=== PATIENT | male | born 1955 | race African-American/Black ===

== ENCOUNTER → 2017-05-21 | Day surgery (SDC) | payer MEDICARE, OTHER ==
[~2017-05-21] MED LIST: ACETAMINOPHEN500 MG PO; ALBUTEROL2.5 MG/3 M IH; AMBIEN5 MG PO; AMIODARONE HCL200 MG PO; ANDROGEL2.5 GM TP; ARANESP40 MCG/0.4 SQ; ARTIFICIAL TEA1 EAC1 OU; ARTIFICIAL TEAR15 ML OP; ASPIR 8181 MG PO; BELLADONNA/OPIUM 60 MG SUPP PR ONE; BENADRYL25 M1 PO; BIOFREEZE TOP; BISACODYL5 MG RC; CEFTRIAXONE SOD 1 GM VIAL ONE; CLONIDINE HCL0.1 MG PO; CORDARONE PO; COUMADIN PO; CYCLOBENZAPRINE10 MG PO; CYMBALTA30 MG PO; DEXAMETHASONE SOD PHOS INJ 4 MG/ML VIAL ONE; DULCOLAX10 MG PR; DULCOLAX10 MG RC; DULCOLAX5 MG PO; ENULOSE10 GM/15 M PO; FENTANYL CITRATE/PF 100MCG/2 ML INJ ONE; FINASTERIDE5 MG PO; FLAVOXATE HCL100 MG PO; FLOMAX0.4 MG PO; FLUTICASONE; FOLIC ACID1 MG PO; GABAPENTIN100 MG PO; GABAPENTIN600 MG PO; IBUPROFEN200 MG PO; IOPAMIDOL 610MG/1ML 300 MG/ML VIAL IV ONE; LACTULOSE20 GM/30 M PO; LIDOCAINE HCL 2% LOCAL INJ 5 ML SDV VIAL INJ ONE; LIDOCAINE PATCH 5% TD; LIDOCAINE1 EA TP; LOPERAMIDE2 MG PO; LORATADINE10 MG PO; LORAZEPAM0.5 MG PO; MEROPENEM500 MG IV; MIDAZOLAM HCL 2 MG/2 ML VIAL ONE; MIDODRINE HCL10 MG PO; MIDODRINE HCL5 MG PO; MIRALAX17 GM PO; MULTIVITAMINS1 EAC7 PO; NEPHRO-VITE TABL1 EA PO; NEPRO-VITE PO; NEURONTIN600 MG PO; NIACIN1000 MG PO; NORCO 10-325 T1 EACH PO; NORCO 7.5-3251 EACH PO; NORVASC5 MG PO; OMEGA 3 1,0001 EACH PO; ONDANSETRON HCL INJ 2 MG/ML VIAL ONE; OXYBUTYNIN CHLO15 MG PO; PAIN RELIEF500 M1 PO; PEPCID20 MG PO; PHENAZOPYRIDIN100 MG PO; PHENYLEPHRINE HCL 1% 10 MG/ML VIAL ONE; POLYETHYLENE GL17 GM PO; PROMETHAZINE HC25 M1 PO; PROPOFOL IV EMULSION 10 MG/ML 20 ML VIAL ONE; PROSCAR5 MG PO; PYRIDOXINE HCL100 MG PO; QUESTRAN PACKET4 GM PO; RENVELA0.8 GM PO; RENVELA800 MG PO; REQUIP0.25 MG PO; REQUIP0.5 MG PO; REQUIP1 MG PO; RIBOFLAVIN100 MG PO; ROBITUSSIN COU118 ML PO; SENNA-S TABLET1 EA PO; SENSIPAR60 MG PO; SENSIPAR90 MG PO; SEROQUEL25 MG PO; SERTRALINE HCL50 MG PO; SEVOFLURANE INHAL SOLN 250 ML PEN BTL ONE; SIMVASTATIN10 MG PO; SODIUM CHLORIDE 0.9% 500ML 500 ML ONE; SOMA350 MG PO; TOPAMAX25 M1 PO; TOPIRAMATE25 MG PO; TYLENOL WITH C1 EACH PO; ULTRAM 50MG50 MG PO; ULTRAM50 MG PO; VASOPRESSIN INJ 20 UNIT/ML VIAL ONE; VITAMIN B COMP1 EAC3 PO; VITAMIN B-121000 MCG PO; ZANAFLEX4 MG PO
[2017-05-21 10:18] LABS: BASOPHILS % 0.2 % (0.0-1.0); EOSINOPHILS # (AUTO) 0.3 (0.0-0.4); HEMATOCRIT 30.3 % (38.2-49.6); HEMOGLOBIN 9.4 g/dL (14.0-18.0); LYMPHOCYTES # (AUTO) 7.6 (1.0-3.2); MEAN CORPUSCULAR HEMOGLOBIN 30.5 pg (28-32); MEAN CORPUSCULAR VOLUME 98.4 fL (81-99); MONOCYTES # (AUTO) 4.5 (0.2-0.8); MONOCYTES % 27.9 % (4.4-11.3); NEUTROPHILS # (AUTO) 3.6 (2.1-6.9); NEUTROPHILS % 22.3 % (38.7-80.0); PLATELET COUNT 201 x10e3/uL (140-360); RED BLOOD COUNT 3.08 x10e6/uL (4.3-5.7); RED CELL DISTRIBUTION WIDTH 14.3 % (11.7-14.4)
[2017-05-21 10:34] LABS: INR 1.17
[2017-05-21 10:35] LABS: PARTIAL THROMBOPLASTIN TIME 27.7 seconds (23.8-35.5)
[2017-05-21 10:39] LABS: ANION GAP 17.4 mmol/L (8-16); CALCIUM 8.8 mg/dL (8.4-10.2); CREATININE, SERUM 5.64 mg/dL (0.72-1.25); POTASSIUM 3.4 mmol/L (3.5-5.1)
--- NOTE | 2017-05-21 10:41 | Diagnostic Imaging Report ---
PROCEDURE:X-RAY ABDOMEN - KUB COMPARISON:CT abdomen and pelvis 10/28/2016. INDICATIONS:PRE-OP RENAL STONES FINDINGS: Calcifications measuring 6 mm, 8 mm, and 6 mm project over the left upper pole, interpolar region, and lower pole, respectively. Ovoid calcifications measuring 6 mm project over the upper and lower poles of the right renal shadow. No additional calcifications projecting over the renal shadows, expected ureteral courses, or urinary bladder. Peripherally calcified abdominal aortic aneurysm is noted, seen to better advantage on comparison CT. Travis-Tul[place] IVC filter projects over the right side of the vertebral column at the L2-L3 level. Bowel gas pattern is nonobstructive. Advanced degenerative joint disease of the right hip. CONCLUSION: Bilateral nephrolithiasis as above. Dictated by: Soto Bhardwaj M.D. on 05/21/2017 at 10:41 Electronically approved by: Soto Bhardwaj M.D. on 05/21/2017 at 10:41
--- NOTE | 2017-07-13 10:41 | Operative Report ---
DATE OF PROCEDURE: May 21, 2017 PREOPERATIVE DIAGNOSES 1. Bilateral nephrolithiasis. 2. Potential for renal colic. POSTOPERATIVE DIAGNOSES 1. Bilateral nephrolithiasis. 2. Potential for left renal colic. 3. Urethral stricture disease. OPERATIONS PERFORMED 1. Staged left-sided extracorporeal shockwave lithotripsy (separate performed to treat the left nephrolithiasis). 2. Cystourethroscopy with calibration and dilation of bulbar urethral stricture (separate performed for diagnosis of stricture). 3. Cystourethroscopy with bilateral ureteral catheterization and retrograde ureteropyelography. 4. Interpretation of retrograde ureteropyelography. 5. Cystourethroscopy with insertion of left indwelling ureteral stent (separate procedure performed to prevent renal colic). ANESTHESIA: General. COMPLICATIONS: None. CLINICAL SUMMARY: Ernie Walton is a complicated 62-year-old man on hemodialysis. He has bilateral nephrolithiasis. He has a malleable penile prosthesis in place. The patient is status post transurethral resection of the prostate. He is brought to the operating room to manage his stones. This was the first of a multistep process of managing the patient's urolithiasis. He is aware of the risks of bleeding, infection, injury to adjacent structures, need for additional procedures, and elected to proceed. OPERATIVE PROCEDURE IN DETAIL: Informed consent was verified. Ernie Walton was properly identified and taken to the operating room and placed on the lithotripsy table in the supine position. Anesthesia was uneventfully begun. The patient's left nephrolithiasis was localized with biplanar fluoroscopy. A total of 3000 shocks were delivered and distributed among the 6 mm upper pole stone, the 8 mm midpole stone and a 6 mm lower caliceal stone. We did not treat the right-sided upper and lower 6-mm stones. Some degree of fragmentation was noted. The patient was then carefully and gently repositioned in the dorsal lithotomy position with all pressure points well-padded. His genitalia were prepared and draped in the usual sterile fashion. The 22.5-[place]izen [place] cystoscope sheath with the visual obturator in place was atraumatically inserted in the patient's urethra. It was guided down the normal distal urethra to the bulbar region where there was a stricture noted. This stricture was calibrated approximately 18-Citizen [place] in size and dilated gently with the cystoscope sheath, 22.5-[place] in size. We then passed the normal sphincteric and region went through the prostate bed, which was wide open and fully re-epithelialized, status post transurethral resection of the prostate. Panendoscopy of the urinary bladder revealed no suspicious mucosal lesions. No tumors. No stones. Trabeculations were noted. An 8-[place]izen [place] catheter was used to cannulate each ureter, and retrograde ureteropyelograms were performed. Under cystoscope and fluoroscopic guidance, a left-sided indwelling ureteral stent was then placed. It was coiled in the patient's left kidney, as well as the patient's bladder. The retaining suture was cut short. Interpretation retrograde ureteropyelography. Contrast was instilled in a retrograde fashion bilaterally. There was bilateral ureteral narrowing of 3-4 cm proximal to the ureteral orifices. There is no true hydronephrosis. The stent was in good position and coiled in the patient's left kidney, as well as the patient's bladder at the end of the case. The patient's bladder was drained. The cystoscope was withdrawn. Plans will be to return the patient to the operating room for another ESWL. Should the left side be fully fragmented, the a left ureteroscopy with stone manipulation and stent removal will be performed in conjunction with the right ESWL. That plan may change based on results of this lithotripsy. Job#: [id number] CHUYITA
== END | disposition home or self-care (01) ==
LOC: OR 09:32
PROVIDERS: ATTEND Urology
DX: N20.0 Calculus of kidney (principal); N35.9 Urethral stricture, unspecified; N32.89 Other specified disorders of bladder; I12.0 Hypertensive chronic kidney disease with stage 5 chronic kidney disease or end stage renal disease; N18.6 End stage renal disease; I44.0 Atrioventricular block, first degree; I49.9 Cardiac arrhythmia, unspecified; F32.9 Major depressive disorder, single episode, unspecified; Z99.2 Dependence on renal dialysis; Z87.891 Personal history of nicotine dependence; Z86.73 Personal history of transient ischemic attack (TIA), and cerebral infarction without residual deficits; Z86.711 Personal history of pulmonary embolism
CPT/HCPCS: 36415; 50590; 52332; 74018; 80048; 83970; 84550; 85025; 85610; 85730; 93005; C1758; C2617; J0696; J1100; J2001; J2250; J2370; J2405; J7040; Q9967

== ENCOUNTER → 2017-07-09 | Day surgery (SDC) | payer MEDICARE ==
[2017-07-07 10:41] LABS: BASOPHILS # (AUTO) 0.1 (0.0-0.1); BASOPHILS % 0.6 % (0.0-1.0); EOSINOPHILS # (AUTO) 0.3 (0.0-0.4); EOSINOPHILS % 1.8 % (0.0-6.0); HEMATOCRIT 39.9 % (38.2-49.6); HEMOGLOBIN 12.6 g/dL (14.0-18.0); LYMPHOCYTES # (AUTO) 8.6 (1.0-3.2); LYMPHOCYTES % 63.4 % (18.0-39.1); MEAN CORPUSCULAR HEMOGLOBIN 30.8 pg (28-32); MEAN CORPUSCULAR HGB CONC 31.6 g/dL (31-35); MEAN CORPUSCULAR VOLUME 97.6 fL (81-99); MONOCYTES # (AUTO) 1.5 (0.2-0.8); MONOCYTES % 10.8 % (4.4-11.3); NEUTROPHILS # (AUTO) 3.2 (2.1-6.9); NEUTROPHILS % 23.3 % (38.7-80.0); PLATELET COUNT 199 x10e3/uL (140-360); RED BLOOD COUNT 4.09 x10e6/uL (4.3-5.7); RED CELL DISTRIBUTION WIDTH 14.6 % (11.7-14.4)
[2017-07-07 11:04] LABS: INR 1.16; PROTHROMBIN TIME 13.9 seconds (11.9-14.5)
[2017-07-07 11:05] LABS: PARTIAL THROMBOPLASTIN TIME 30.6 seconds (23.8-35.5)
[2017-07-07 11:12] LABS: ANION GAP 17.1 mmol/L (8-16); CALCIUM 9.9 mg/dL (8.4-10.2); CREATININE, SERUM 6.32 mg/dL (0.72-1.25); POTASSIUM 5.1 mmol/L (3.5-5.1)
[2017-07-07 12:22] LABS: EOSINOPHILS % (MANUAL) 1 % (0-7); LYMPHOCYTES % (MANUAL) 62 % (19-48); MONOCYTES % (MANUAL) 5 % (3.4-9.0); NEUTROPHILS % (MANUAL) 30 % (40-74)
[2017-07-07 12:23] LABS: ANISOCYTOSIS SLIGHT; PLATELET ESTIMATE ADEQUATE; PLATELET MORPHOLOGY COMMENT NORMAL; RBC MORPHOLOGY COMMENT NORMAL
[~2017-07-09] MED LIST changes: -BELLADONNA/OPIUM 60 MG SUPP PR ONE; -DEXAMETHASONE SOD PHOS INJ 4 MG/ML VIAL ONE; +EPHEDRINE SULFATE INJ 50 MG/10 ML SYR ONE; -IOPAMIDOL 610MG/1ML 300 MG/ML VIAL IV ONE; -PHENYLEPHRINE HCL 1% 10 MG/ML VIAL ONE
--- OUTSIDE RECORDS SUMMARY | 2017-07-09 06:00 | XMS REPORT ---
Author Author [facility] Address Unknown Phone Unavailable Care Team Providers Care Interior Design Instructor Name Role Phone GENESIS GUAJARDO Unavailable Unavailable Problems This patient has no known problems. Allergies, Adverse Reactions, Alerts This patient has no known allergies or adverse reactions. Medications This patient has no known medications. Results Test Description Test Time Test Comments Text Results Atomic Results Result Comments ABDOMEN-1VIEW (KUB) [place] [address] Patient Name: ALEXANDRA ALVAREZ MR #: [id number] : 1955 Age/Sex: 62/M Req #: [id number] Adm Physician: Ordered by: GENESIS GUAJARDO MD Report #: [id number] Location: OR Room/Bed: Procedure: [id number] DX/ABDOMEN-1VIEW (KUB) Exam Date: 05/21/17 Exam Time: 1000 REPORT STATUS: Signed PROCEDURE: X-RAY ABDOMEN - KUB COMPARISON: CT abdomen and pelvis 10/28/2016. INDICATIONS: PRE-OP RENAL STONES FINDINGS: Calcifications measuring 6 mm, 8 mm, and 6 mm project over the left upper pole, interpolar region, and lower pole, respectively. Ovoid calcifications measuring 6 mm project over the upper and lower poles of the right renal shadow. No additional calcifications projecting over the renal shadows, expected ureteral courses, or urinary bladder. Peripherally calcified abdominal aortic aneurysm is noted, seen to better advantage on comparison CT. Travis- Tulip IVC filter projects over the right side of the vertebral column at the L2-L3 level. Bowel gas pattern is nonobstructive. Advanced degenerative joint disease of the right hip. CONCLUSION: Bilateral nephrolithiasis as above. Dictated by: Don Craig M.D. on 05/21/2017 at 10: 41 Electronically approved by: Don Craig M.D. on 05/21/2017 at 10:41 Dictated By: DON CRAIG MD 1041 Transcribed By: AMNA on 05/21/17 1041 COPY TO : GENESIS GUAJARDO MD
[2017-07-09 06:44] LABS: BASOPHILS # (AUTO) 0.1 (0.0-0.1); BASOPHILS % 0.5 % (0.0-1.0); EOSINOPHILS # (AUTO) 0.3 (0.0-0.4); EOSINOPHILS % 2.2 % (0.0-6.0); HEMATOCRIT 41.3 % (38.2-49.6); HEMOGLOBIN 12.9 g/dL (14.0-18.0); LYMPHOCYTES # (AUTO) 9.3 (1.0-3.2); LYMPHOCYTES % 68.9 % (18.0-39.1); MEAN CORPUSCULAR HEMOGLOBIN 30.4 pg (28-32); MEAN CORPUSCULAR HGB CONC 31.2 g/dL (31-35); MEAN CORPUSCULAR VOLUME 97.4 fL (81-99); MONOCYTES # (AUTO) 0.8 (0.2-0.8); MONOCYTES % 5.7 % (4.4-11.3); NEUTROPHILS % 22.6 % (38.7-80.0); PLATELET COUNT 191 x10e3/uL (140-360); RED BLOOD COUNT 4.24 x10e6/uL (4.3-5.7); RED CELL DISTRIBUTION WIDTH 14.4 % (11.7-14.4)
--- NOTE | 2017-07-09 07:19 | Diagnostic Imaging Report ---
PROCEDURE:X-RAY ABDOMEN - KUB COMPARISON:[facility], DX, ABDOMEN-1VIEW (KUB), 05/21/2017, 10:05. INDICATIONS:PREOPERATIVE XRAY FOR KIDNEY STONE SURGERY FINDINGS: There are 4 stones overlying the upper pole of the right kidney. A single stone overlies the lower pole. The largest of these is in the lower pole stone measuring 6 mm. There is a left double-J ureteral stent. Multiple stones are present overlying the left kidney. The largest is probably within the renal pelvis measuring 9 mm. There are at least 8 other smaller stones overlying the left renal shadow. There are no dilated loops of bowel to suggest obstruction. There are no masses. Calcified abdominal aortic aneurysm has a maximal measurement of 4.1 cm. There is no evidence of free air. No acute osseous abnormalities are present. Degenerative changes of the spine and hips. CONCLUSION: Bilateral renal lithiasis. Andrei Jacobo D.O. Dictated by: Andrei Jacobo D.O. on 07/09/2017 at 7:20 Electronically approved by: Andrei Jacobo D.O. on 07/09/2017 at 7:20
[2017-07-09 08:54] LABS: EOSINOPHILS % (MANUAL) 3 % (0-7); LYMPHOCYTES % (MANUAL) 27 % (19-48); MONOCYTES % (MANUAL) 6 % (3.4-9.0); MYELOCYTES % (MANUAL) 1 % (0-0); NEUTROPHILS % (MANUAL) 23 % (40-74)
[2017-07-09 08:56] LABS: ANISOCYTOSIS SLIGHT; PLATELET ESTIMATE ADEQUATE; PLATELET MORPHOLOGY COMMENT FEW LARGE; RBC MORPHOLOGY COMMENT NORMAL
--- NOTE | 2017-08-16 01:26 | Operative Report ---
DATE OF PROCEDURE: July 09, 2017 PREOPERATIVE DIAGNOSIS: Left nephrolithiasis. POSTOPERATIVE DIAGNOSIS: Left nephrolithiasis. OPERATIONS PERFORMED 1. Staged left-sided extracorporeal shockwave lithotripsy . 2. Supervision of fluoroscopy. No radiologist present. ANESTHESIA: General. COMPLICATIONS: None. CLINICAL SUMMARY: Ernie Walton is a 62-year-old man, who underwent ESWL, as well as stent placement on the left hand side. He was brought initially to the operating room today for a right ESWL and removal of his left stent; however, preoperative KUB revealed residual stone burden in the left kidney. Therefore, we changed the surgical plan to perform a left ESWL. Will plan on treating the right hand side in the future. Patient is aware of the risks of bleeding, infection, injury to adjacent structures, need for additional procedures, and elected to proceed. OPERATIVE PROCEDURE IN DETAIL: Informed consent was verified. Ernie Walton was properly identified, taken to operating room, placed on lithotripsy table in the supine position. Anesthesia was uneventfully begun. The patient's 9-mm lower caliceal stone and 7-mm upper caliceal stone were both localized with biplanar fluoroscopy, total of 3000 shocks were delivered between the 2 stones. Fragmentation was noted. The patient was then uneventfully reversed from anesthesia, was taken to recovery room in stable condition. There were no complications to the procedure. He tolerated the procedure well. Explicit postop instructions were given. Will plan to return the patient to the operating room for a right ESWL in conjunction with the left ureteroscopy with stent removal and laser availability. Job#: [id number] CQ
== END | disposition home or self-care (01) ==
LOC: OR 05:57
PROVIDERS: ATTEND Urology
DX: N20.0 Calculus of kidney (principal); Z96.0 Presence of urogenital implants; I12.0 Hypertensive chronic kidney disease with stage 5 chronic kidney disease or end stage renal disease; N18.6 End stage renal disease; I69.354 Hemiplegia and hemiparesis following cerebral infarction affecting left non-dominant side; E78.5 Hyperlipidemia, unspecified; I48.91 Unspecified atrial fibrillation; K21.9 Gastro-esophageal reflux disease without esophagitis; M19.90 Unspecified osteoarthritis, unspecified site; Z88.0 Allergy status to penicillin; Z01.812 Encounter for preprocedural laboratory examination; Z79.82 Long term (current) use of aspirin; Z99.2 Dependence on renal dialysis; Z87.891 Personal history of nicotine dependence
CPT/HCPCS: 36415 ×2; 50590; 74018; 80048; 84132; 85025 ×2; 85610; 85730; J0696; J2001; J2250; J2405; J7040

== ENCOUNTER 2017-09-08 06:04 | Inpatient (IN) | payer MEDICARE, OTHER ==
[~2017-09-08] VITALS: Ht 182.9 cm; Wt 92.6 kg
[~2017-09-08 06:04] MED LIST changes: -CEFTRIAXONE SOD 1 GM VIAL ONE; -EPHEDRINE SULFATE INJ 50 MG/10 ML SYR ONE; -FENTANYL CITRATE/PF 100MCG/2 ML INJ ONE; -LIDOCAINE HCL 2% LOCAL INJ 5 ML SDV VIAL INJ ONE; -MIDAZOLAM HCL 2 MG/2 ML VIAL ONE; -ONDANSETRON HCL INJ 2 MG/ML VIAL ONE; -PROPOFOL IV EMULSION 10 MG/ML 20 ML VIAL ONE; -SEVOFLURANE INHAL SOLN 250 ML PEN BTL ONE; -SODIUM CHLORIDE 0.9% 500ML 500 ML ONE; -VASOPRESSIN INJ 20 UNIT/ML VIAL ONE
[2017-09-08] MEDS ORDERED: SODIUM CHLORIDE 0.9% 500ML 500 ML ONE (06:47)
[2017-09-08] MEDS ORDERED: GENTAMICIN 80MG/NS 100 ML 100 ML IV ONE (07:21)
[2017-09-08 07:22] LABS: BASOPHILS # (AUTO) 0.1 (0.0-0.1); BASOPHILS % 0.4 % (0.0-1.0); EOSINOPHILS # (AUTO) 0.2 (0.0-0.4); EOSINOPHILS % 0.9 % (0.0-6.0); HEMATOCRIT 42.3 % (38.2-49.6); HEMOGLOBIN 13.5 g/dL (14.0-18.0); LYMPHOCYTES % 71.6 % (18.0-39.1); MEAN CORPUSCULAR HEMOGLOBIN 30.9 pg (28-32); MEAN CORPUSCULAR HGB CONC 31.9 g/dL (31-35); MEAN CORPUSCULAR VOLUME 96.8 fL (81-99); MONOCYTES % 8.8 % (4.4-11.3); PLATELET COUNT 206 x10e3/uL (140-360); RED BLOOD COUNT 4.37 x10e6/uL (4.3-5.7); RED CELL DISTRIBUTION WIDTH 14.5 % (11.7-14.4)
--- NOTE | 2017-09-08 08:04 | Diagnostic Imaging Report ---
PROCEDURE:X-RAY ABDOMEN - KUB COMPARISON:[facility], DX, ABDOMEN-1VIEW (KUB), 07/09/2017, 6:54. INDICATIONS:PRE-OPERATIVE ABDOMINAL XRAY FOR KIDNEY STONE SX FINDINGS: An IVC filter is noted adjacent to L2/L3. Abdominal aortic calcification/aneurysm again noted measuring approximately 4 cm. Right common iliac artery aneurysm measures 3 cm. There is a double-J left ureteral stent present. Multiple stones are present within the left kidney with 2 adjacent to the double-J ureteral stent. Largest stone in the left kidney likely in the renal pelvis measuring 7.7 mm. Small stones are noted overlying the right kidney. There are no dilated loops of bowel to suggest obstruction. There are no masses. There is no evidence of free air. No acute osseous abnormalities are present. Degenerative changes of the both hips; right greater than left again noted. CONCLUSION: 1. No acute abdominal abnormality. 2. Bilateral renal lithiasis. 3. Abdominal aortic and right iliac artery aneurysms. Andrei Jacobo D.O. Dictated by: Andrei Jacobo D.O. on 09/08/2017 at 8:07 Electronically approved by: Andrei Jacobo D.O. on 09/08/2017 at 8:07
[2017-09-08 08:23] LABS: ANISOCYTOSIS SLIGHT; EOSINOPHILS % (MANUAL) 1 % (0-7); LYMPHOCYTES % (MANUAL) 73 % (19-48); MONOCYTES % (MANUAL) 6 % (3.4-9.0); NEUTROPHILS % (MANUAL) 15 % (40-74); PLATELET ESTIMATE ADEQUATE; PLATELET MORPHOLOGY COMMENT FEW LARGE; PROMYELOCYTES % (MANUAL) 1 % (0-0); RBC MORPHOLOGY COMMENT NORMAL
[2017-09-08] MEDS ORDERED: CEFTRIAXONE SOD 1 GM VIAL IV SCH (09:00)
[2017-09-08 10:30] VITALS: BP 116/56
[2017-09-08 12:08] LABS: CLARITY,URINE MUCOUS (CLEAR); COLOR,URINE COLORLESS (YELLOW)
[2017-09-08 12:11] LABS: KETONES,URINE NEGATIVE (NEGATIVE); LEUKOCYTE ESTERASE ,URINE 2+ (NEGATIVE); NITRITE,URINE POSITIVE (NEGATIVE); PROTEIN,URINE DIPSTICK 2+ (NEGATIVE); URINE UROBILINOGEN 0.2 mg/dL (0.2 - 1)
[2017-09-08 12:12] LABS: BACTERIA,URINE FEW /HPF; BILIRUBIN,URINE 1+ (NEGATIVE); EPITHELIAL CELLS,URINE RARE /LPF; WBC,URINE (MAN) 21-50 /HPF (0-5)
[2017-09-08 12:50] VITALS: BP 126/61
[2017-09-08 15:50] LABS: BASOPHILS # (AUTO) 0.1 (0.0-0.1); BASOPHILS % 0.3 % (0.0-1.0); EOSINOPHILS # (AUTO) 0.2 (0.0-0.4); EOSINOPHILS % 0.9 % (0.0-6.0); HEMATOCRIT 40.1 % (38.2-49.6); HEMOGLOBIN 12.6 g/dL (14.0-18.0); LYMPHOCYTES # (AUTO) 16.9 (1.0-3.2); LYMPHOCYTES % 73.8 % (18.0-39.1); MEAN CORPUSCULAR HEMOGLOBIN 30.7 pg (28-32); MEAN CORPUSCULAR HGB CONC 31.4 g/dL (31-35); MEAN CORPUSCULAR VOLUME 97.8 fL (81-99); MONOCYTES # (AUTO) 1.9 (0.2-0.8); MONOCYTES % 8.4 % (4.4-11.3); NEUTROPHILS # (AUTO) 3.7 (2.1-6.9); NEUTROPHILS % 16.4 % (38.7-80.0); PLATELET COUNT 208 x10e3/uL (140-360); RED CELL DISTRIBUTION WIDTH 14.2 % (11.7-14.4)
[2017-09-08 16:05] LABS: CALCIUM 9.4 mg/dL (8.4-10.2); CREATININE, SERUM 7.85 mg/dL (0.72-1.25)
[2017-09-08 17:03] VITALS: BP 126/60
[2017-09-08] MEDS ORDERED: SODIUM CHLORIDE 0.9% 1000ML 2,000 ML IV PRN (17:30)
[2017-09-08] MEDS ORDERED: SOD POLYSTYRENE SULFONATE SUSP 15 GM/60 ML BTL PO ONE (17:45)
[2017-09-08 20:00] VITALS: BP 109/57
--- NOTE | 2017-09-08 20:06 | Consultation ---
DATE OF CONSULTATION: September 08, 2017 ADMITTING PHYSICIAN: Dr. Isaak Kowalski, Dr. Armin Vang. REASON FOR ADMISSION: Renal stone, possible lithotripsy. REASON FOR CONSULTATION: For the management of end-stage renal disease and hyperkalemia. HISTORY OF PRESENT ILLNESS: The patient was examined, chart reviewed, events noted. The patient is a 62-year-old male with past medical history significant for end-stage renal disease and several admissions for hyperkalemia despite being on dialysis. He also has history of coronary artery disease and CVA that resulted in left-sided hemiparesis. The patient also has a history of V-tach cardiac arrest. The patient at this time is seen by Dr. Isaak Kowalski for renal stone. He was brought in for lithotripsy, but was found to have potassium of 6.0. The patient was, therefore, admitted overnight to get him dialyzed and then get the procedure done. Hence, this renal consult. PAST MEDICAL HISTORY: As mentioned in the history of present illness, the patient has: 1. End-stage renal disease. 2. Coronary artery disease. 3. Ischemic colitis. 4. Diverticulosis. 5. CVA with left-sided hemiparesis. 6. Hypertension. 7. Dyslipidemia. 8. V-tach cardiac arrest. 9. Diskitis and osteomyelitis of the spine. ALLERGIES: THE PATIENT IS ALLERGIC TO AMOXICILLIN AND AUGMENTIN. MEDICATIONS: Reviewed. FAMILY HISTORY: Nil for relevance. SOCIAL HISTORY: The patient is a senior living resident. He has a sister who is very much involved in his care. REVIEW OF SYSTEMS: As per the history of present illness. PHYSICAL EXAMINATION GENERAL: Patient is an obese gentleman. He is alert, awake, and oriented, not in significant distress. VITAL SIGNS: Temperature 97.5 degrees Fahrenheit, pulse rate 67 per minute, respiratory rate 16 per minute, blood pressure 126/61 mmHg. He weighs 223 pounds. HEENT: Unremarkable. NECK: Supple. No jugular venous distention. No thyromegaly. CHEST: Good air entry bilaterally. CARDIOVASCULAR: Regular rate and rhythm. ABDOMEN: Nondistended and nontender. No organomegaly. EXTREMITIES: The patient has left-sided hemiparesis. No edema, clubbing or cyanosis noted. CENTRAL NERVOUS SYSTEM: Other than left-sided hemiparesis, unremarkable. DIAGNOSTIC DATA: His hemogram revealed a white count of 22.8, hemoglobin 12.6, hematocrit 40.1, and a platelet count of 208. His chemistries revealed serum sodium of 144, potassium of 6.0, chloride 99, bicarb 29, BUN 61, creatinine 7.85, glucose 77. ASSESSMENT: In summary, the patient is a 62-year-old gentleman with: 1. End-stage renal disease. 2. Hyperkalemia secondary to #1. 3. Possible urinary tract infection. 4. Nephrolithiasis. 5. Coronary artery disease. 6. Old left-sided hemiparesis. PLAN: At this point, we would like to: 1. Hold midodrine. The patient also has a CVA, and the blood pressures are in 120s systolic. 2. The patient usually comes with his potassium in the 6's predialysis. I will, therefore, give him a dose of Kayexalate 30 g times 1 dose. 3. Have the patient dialyzed the first thing in the morning prior to the procedure. 4. Review all medications. Finally, I would like to thank you, Dr. Armin Vang and Dr. Isaak Kowalski, for this opportunity to participate in the care of this gentleman. Needless to say, we will be very happy to follow this patient with you. JOSE ENRIQUE LEWIS MD Job#: [id number]
[2017-09-09] VITALS (8 sets, daily range): BP systolic 99–158; BP diastolic 52–62
[2017-09-09 05:41] LABS: BASOPHILS # (AUTO) 0.1 (0.0-0.1); BASOPHILS % 0.3 % (0.0-1.0); EOSINOPHILS # (AUTO) 0.3 (0.0-0.4); EOSINOPHILS % 1.3 % (0.0-6.0); HEMOGLOBIN 12.3 g/dL (14.0-18.0); LYMPHOCYTES # (AUTO) 13.5 (1.0-3.2); LYMPHOCYTES % 69.6 % (18.0-39.1); MEAN CORPUSCULAR HEMOGLOBIN 30.7 pg (28-32); MEAN CORPUSCULAR HGB CONC 31.5 g/dL (31-35); MEAN CORPUSCULAR VOLUME 97.3 fL (81-99); MONOCYTES # (AUTO) 1.7 (0.2-0.8); MONOCYTES % 8.6 % (4.4-11.3); NEUTROPHILS # (AUTO) 3.9 (2.1-6.9); PLATELET COUNT 174 x10e3/uL (140-360); RED BLOOD COUNT 4.01 x10e6/uL (4.3-5.7); RED CELL DISTRIBUTION WIDTH 14.3 % (11.7-14.4)
[2017-09-09 05:59] LABS: ANION GAP 23.8 mmol/L (8-16); CALCIUM 9.4 mg/dL (8.4-10.2); CREATININE, SERUM 8.43 mg/dL (0.72-1.25); POTASSIUM 5.8 mmol/L (3.5-5.1)
[2017-09-09 06:07] LABS: EOSINOPHILS % (MANUAL) 1 % (0-7); LYMPHOCYTES % (MANUAL) 72 % (19-48); MONOCYTES % (MANUAL) 6 % (3.4-9.0); NEUTROPHILS % (MANUAL) 16 % (40-74); PLATELET ESTIMATE ADEQUATE; PLATELET MORPHOLOGY COMMENT NORMAL; RBC MORPHOLOGY COMMENT NORMAL
[2017-09-09] MEDS ORDERED: CARISOPRODOL 350 MG TAB PO PRN (09:30)
[2017-09-09] MEDS ORDERED: LORATADINE 10 MG TAB PO SCH (09:30)
[2017-09-09] MEDS ORDERED: BISACODYL 10 MG SUPP PR SCH (09:30)
[2017-09-09] MEDS ORDERED: ROPINIROLE HCL 1 MG TAB PO SCH (09:30)
[2017-09-09] MEDS ORDERED: TRAMADOL HCL 50 MG TAB PO SCH (09:30)
[2017-09-09] MEDS ORDERED: LACTULOSE SYRUP 20 GM/30 ML UDC PO SCH (09:30)
[2017-09-09] MEDS ORDERED: BISACODYL 10 MG SUPP PR PRN (09:45)
[2017-09-09] MEDS ORDERED: TRAMADOL HCL 50 MG TAB PO PRN (09:45)
[2017-09-09] MEDS ORDERED: LORATADINE 10 MG TAB PO PRN (09:45)
[2017-09-09] MEDS ORDERED: LACTULOSE SYRUP 20 GM/30 ML UDC PO PRN (09:45)
[2017-09-09] MEDS ORDERED: GUAIFENESIN/DEXTROMETHORPHAN LIQD 5 ML UDC PO PRN (09:45)
[2017-09-09] MEDS ORDERED: ACETAMINOPHEN/CODEINE 300MG - 30MG TAB PO SCH (10:00)
[2017-09-09] MEDS ORDERED: HEPARIN SOD (PORCINE) 1000 UNIT/ML SDV IV PRN ×2 (10:15→11:00)
[2017-09-09] MEDS ORDERED: ACETAMINOPHEN/CODEINE 300MG - 30MG TAB PO PRN (11:15)
[2017-09-09] MEDS: SEVELAMER CARBONATE 800 MG TAB PO SCH ×2 (13:13→17:17)
[2017-09-09] MEDS: PHENAZOPYRIDINE HCL 100 MG TAB PO SCH ×2 (17:17→21:11)
[2017-09-09] MEDS ORDERED: GABAPENTIN 100 MG CAP PO SCH (21:00)
[2017-09-09] MEDS ORDERED: MEROPENEM 500MG 500 MG in SODIUM CHLORIDE 0.9% 50ML 50 ML IV SCH (21:00)
[2017-09-09] MEDS: GABAPENTIN 300 MG CAP PO SCH (21:11)
[2017-09-09] MEDS: MEROPENEM 500 MG VIAL IV SCH (21:12)
[2017-09-10] VITALS: BP 103/66
[2017-09-10 05:41] LABS: BASOPHILS # (AUTO) 0.1 (0.0-0.1); BASOPHILS % 0.3 % (0.0-1.0); EOSINOPHILS # (AUTO) 0.3 (0.0-0.4); EOSINOPHILS % 1.2 % (0.0-6.0); HEMATOCRIT 42.8 % (38.2-49.6); HEMOGLOBIN 13.4 g/dL (14.0-18.0); LYMPHOCYTES # (AUTO) 14.2 (1.0-3.2); LYMPHOCYTES % 69.5 % (18.0-39.1); MEAN CORPUSCULAR HEMOGLOBIN 30.6 pg (28-32); MEAN CORPUSCULAR HGB CONC 31.3 g/dL (31-35); MEAN CORPUSCULAR VOLUME 97.7 fL (81-99); MONOCYTES # (AUTO) 1.9 (0.2-0.8); MONOCYTES % 9.3 % (4.4-11.3); NEUTROPHILS % 19.5 % (38.7-80.0); PLATELET COUNT 203 x10e3/uL (140-360); RED BLOOD COUNT 4.38 x10e6/uL (4.3-5.7); RED CELL DISTRIBUTION WIDTH 14.3 % (11.7-14.4)
[2017-09-10 05:49] LABS: CALCIUM 10.8 mg/dL (8.4-10.2); CREATININE, SERUM 6.54 mg/dL (0.72-1.25)
[2017-09-10 07:21] LABS: ANISOCYTOSIS SLIGHT; EOSINOPHILS % (MANUAL) 1 % (0-7); LYMPHOCYTES % (MANUAL) 63 % (19-48); MONOCYTES % (MANUAL) 8 % (3.4-9.0); NEUTROPHILS % (MANUAL) 23 % (40-74); PLATELET ESTIMATE ADEQUATE; PLATELET MORPHOLOGY COMMENT NORMAL; RBC MORPHOLOGY COMMENT NORMAL
[2017-09-10 07:30] VITALS: BP 95/57
[2017-09-10 07:48] VITALS: BP 95/57
[2017-09-10] MEDS: MEROPENEM 500 MG VIAL IV SCH ×2 (08:41→20:52)
[2017-09-10] MEDS: AMIODARONE HCL 200 MG TAB PO SCH (08:41)
[2017-09-10] MEDS: BISACODYL 5 MG TAB EC PO SCH (08:41)
[2017-09-10] MEDS: SEVELAMER CARBONATE 800 MG TAB PO SCH ×3 (08:41→16:53)
[2017-09-10] MEDS: POLYETHYLENE GLYCOL 3350 17 GM PACK PO SCH (08:42)
[2017-09-10] MEDS: PHENAZOPYRIDINE HCL 100 MG TAB PO SCH ×3 (08:42→20:52)
[2017-09-10] MEDS: FINASTERIDE 5 MG TAB PO SCH (08:42)
[2017-09-10] MEDS: ROPINIROLE HCL 1 MG TAB PO SCH (08:42)
[2017-09-10] MEDS ORDERED: MIDODRINE HCL 10 MG PO SCH (09:00)
[2017-09-10] MEDS ORDERED: MIDODRINE HCL 5 MG TABLET PO SCH (09:00)
[2017-09-10 11:56] VITALS: BP 94/51
[2017-09-10] MEDS: LEVOFLOXACIN 250 MG TAB PO SCH (14:57)
[2017-09-10 16:33] VITALS: BP 82/53
[2017-09-10 20:00] VITALS: BP 116/58
[2017-09-10] MEDS: GABAPENTIN 300 MG CAP PO SCH (20:52)
[2017-09-11] VITALS (7 sets, daily range): BP systolic 75–126; BP diastolic 47–63
[2017-09-11 07:01] LABS: BASOPHILS # (AUTO) 0.1 (0.0-0.1); BASOPHILS % 0.3 % (0.0-1.0); EOSINOPHILS # (AUTO) 0.3 (0.0-0.4); EOSINOPHILS % 1.3 % (0.0-6.0); HEMATOCRIT 39.7 % (38.2-49.6); HEMOGLOBIN 12.7 g/dL (14.0-18.0); LYMPHOCYTES # (AUTO) 12.8 (1.0-3.2); LYMPHOCYTES % 67.9 % (18.0-39.1); MEAN CORPUSCULAR HEMOGLOBIN 30.6 pg (28-32); MEAN CORPUSCULAR VOLUME 95.7 fL (81-99); MONOCYTES # (AUTO) 1.9 (0.2-0.8); MONOCYTES % 10.3 % (4.4-11.3); NEUTROPHILS # (AUTO) 3.7 (2.1-6.9); NEUTROPHILS % 19.9 % (38.7-80.0); PLATELET COUNT 189 x10e3/uL (140-360); RED BLOOD COUNT 4.15 x10e6/uL (4.3-5.7); RED CELL DISTRIBUTION WIDTH 14.2 % (11.7-14.4)
[2017-09-11 07:18] LABS: ANION GAP 22.9 mmol/L (8-16); CALCIUM 10.2 mg/dL (8.4-10.2); CREATININE, SERUM 8.26 mg/dL (0.72-1.25)
[2017-09-11 07:20] LABS: POTASSIUM 5.9 mmol/L (3.5-5.1)
[2017-09-11] MEDS: MIDODRINE HCL 5 MG TABLET PO SCH (07:51)
[2017-09-11 07:54] LABS: EOSINOPHILS % (MANUAL) 3 % (0-7); LYMPHOCYTES % (MANUAL) 78 % (19-48); METAMYELOCYTES % (MANUAL) 1 % (0-0); NEUTROPHILS % (MANUAL) 18 % (40-74)
[2017-09-11 07:55] LABS: ANISOCYTOSIS SLIGHT; PLATELET ESTIMATE ADEQUATE; PLATELET MORPHOLOGY COMMENT FEW LARGE; RBC MORPHOLOGY COMMENT NORMAL
[2017-09-11] MEDS: BISACODYL 5 MG TAB EC PO SCH (08:04)
[2017-09-11] MEDS: POLYETHYLENE GLYCOL 3350 17 GM PACK PO SCH (08:04)
[2017-09-11] MEDS: FINASTERIDE 5 MG TAB PO SCH (08:04)
[2017-09-11] MEDS: ROPINIROLE HCL 1 MG TAB PO SCH (08:04)
[2017-09-11] MEDS: PHENAZOPYRIDINE HCL 100 MG TAB PO SCH ×3 (08:04→20:45)
[2017-09-11] MEDS: SEVELAMER CARBONATE 800 MG TAB PO SCH ×3 (08:04→17:08)
[2017-09-11] MEDS: MEROPENEM 500 MG VIAL IV SCH ×2 (08:04→20:45)
[2017-09-11] MEDS: AMIODARONE HCL 200 MG TAB PO SCH (08:04)
[2017-09-11] MEDS ORDERED: MANNITOL 25% 12.5GM/50 ML VIAL IV PRN (10:00)
[2017-09-11] MEDS ORDERED: EPOETIN ALFA 10000 UNIT/ML VIAL SC ONE (12:00)
[2017-09-11] MEDS: LEVOFLOXACIN 250 MG TAB PO SCH (15:12)
--- NOTE | 2017-09-11 16:34 | Diagnostic Imaging Report ---
EXAMINATION: PA and lateral views of the chest. COMPARISON: None CLINICAL HISTORY: Leukocytosis DISCUSSION: Lines/tubes: None. Lungs: No consolidation. Pleura: There is no pleural effusion or pneumothorax. Heart and mediastinum: Enlarged heart and mediastinal contour. Bones and soft tissues: No acute bony abnormalities. IMPRESSION: No acute cardiopulmonary abnormalities. Signed by: Dr. Alberto Turner M.D. on 09/11/2017 4:31 PM
[2017-09-11] MEDS: GABAPENTIN 300 MG CAP PO SCH (20:45)
[2017-09-12] VITALS (8 sets, daily range): BP systolic 99–107; BP diastolic 54–60
[2017-09-12 05:29] LABS: BASOPHILS # (AUTO) 0.1 (0.0-0.1); BASOPHILS % 0.5 % (0.0-1.0); EOSINOPHILS # (AUTO) 0.3 (0.0-0.4); EOSINOPHILS % 1.5 % (0.0-6.0); HEMATOCRIT 41.2 % (38.2-49.6); HEMOGLOBIN 13.1 g/dL (14.0-18.0); LYMPHOCYTES # (AUTO) 12.2 (1.0-3.2); LYMPHOCYTES % 70.9 % (18.0-39.1); MEAN CORPUSCULAR HEMOGLOBIN 30.7 pg (28-32); MEAN CORPUSCULAR HGB CONC 31.8 g/dL (31-35); MEAN CORPUSCULAR VOLUME 96.5 fL (81-99); MONOCYTES # (AUTO) 1.4 (0.2-0.8); MONOCYTES % 8.4 % (4.4-11.3); NEUTROPHILS # (AUTO) 3.2 (2.1-6.9); NEUTROPHILS % 18.5 % (38.7-80.0); PLATELET COUNT 186 x10e3/uL (140-360); RED BLOOD COUNT 4.27 x10e6/uL (4.3-5.7); RED CELL DISTRIBUTION WIDTH 14.2 % (11.7-14.4)
[2017-09-12 05:45] LABS: ANION GAP 17.4 mmol/L (8-16); CALCIUM 10.6 mg/dL (8.4-10.2); CREATININE, SERUM 5.76 mg/dL (0.72-1.25); POTASSIUM 5.4 mmol/L (3.5-5.1)
[2017-09-12] MEDS: SEVELAMER CARBONATE 800 MG TAB PO SCH ×3 (08:00→16:50)
[2017-09-12] MEDS: MIDODRINE HCL 5 MG TABLET PO SCH (09:00)
[2017-09-12] MEDS ORDERED: SOD POLYSTYRENE SULFONATE SUSP 15 GM/60 ML BTL PR NR (09:15)
[2017-09-12] MEDS: MEROPENEM 500 MG VIAL IV SCH ×2 (09:31→21:05)
[2017-09-12] MEDS: FINASTERIDE 5 MG TAB PO SCH (09:31)
[2017-09-12] MEDS: AMIODARONE HCL 200 MG TAB PO SCH (09:31)
[2017-09-12] MEDS: PHENAZOPYRIDINE HCL 100 MG TAB PO SCH ×3 (09:31→21:05)
[2017-09-12 10:57] LABS: EOSINOPHILS % (MANUAL) 4 % (0-7); LYMPHOCYTES % (MANUAL) 75 % (19-48); MONOCYTES % (MANUAL) 3 % (3.4-9.0); NEUTROPHILS % (MANUAL) 10 % (40-74); PLATELET ESTIMATE ADEQUATE; PLATELET MORPHOLOGY COMMENT NORMAL; RBC MORPHOLOGY COMMENT NORMAL
[2017-09-12] MEDS: LEVOFLOXACIN 250 MG TAB PO SCH (15:35)
[2017-09-12] MEDS: GABAPENTIN 300 MG CAP PO SCH (21:05)
[2017-09-12] MEDS: ROPINIROLE HCL 1 MG TAB PO SCH (21:05)
[2017-09-13] VITALS (7 sets, daily range): BP systolic 97–125; BP diastolic 57–68
[2017-09-13 05:25] LABS: BASOPHILS # (AUTO) 0.1 (0.0-0.1); BASOPHILS % 0.3 % (0.0-1.0); EOSINOPHILS # (AUTO) 0.3 (0.0-0.4); EOSINOPHILS % 1.7 % (0.0-6.0); HEMATOCRIT 38.8 % (38.2-49.6); HEMOGLOBIN 12.5 g/dL (14.0-18.0); LYMPHOCYTES % 70.3 % (18.0-39.1); MEAN CORPUSCULAR HEMOGLOBIN 30.7 pg (28-32); MEAN CORPUSCULAR HGB CONC 32.2 g/dL (31-35); MEAN CORPUSCULAR VOLUME 95.3 fL (81-99); MONOCYTES # (AUTO) 1.6 (0.2-0.8); MONOCYTES % 8.4 % (4.4-11.3); NEUTROPHILS # (AUTO) 3.5 (2.1-6.9); NEUTROPHILS % 19.1 % (38.7-80.0); PLATELET COUNT 176 x10e3/uL (140-360); RED BLOOD COUNT 4.07 x10e6/uL (4.3-5.7)
[2017-09-13 05:41] LABS: ANION GAP 21.6 mmol/L (8-16); CALCIUM 10.2 mg/dL (8.4-10.2); CREATININE, SERUM 8.12 mg/dL (0.72-1.25); POTASSIUM 5.6 mmol/L (3.5-5.1)
[2017-09-13 07:29] LABS: LYMPHOCYTES % (MANUAL) 66 % (19-48); MONOCYTES % (MANUAL) 4 % (3.4-9.0); NEUTROPHILS % (MANUAL) 30 % (40-74)
[2017-09-13 07:30] LABS: PLATELET ESTIMATE ADEQUATE; PLATELET MORPHOLOGY COMMENT NORMAL; RBC MORPHOLOGY COMMENT NORMAL
[2017-09-13] MEDS: SEVELAMER CARBONATE 800 MG TAB PO SCH ×3 (07:30→16:30)
[2017-09-13 07:31] LABS: ANISOCYTOSIS SLIG; POIKILOCYTOSIS SLIGHT; SMUDGE CELLS MODERATE
[2017-09-13] MEDS: MIDODRINE HCL 5 MG TABLET PO SCH (09:00)
[2017-09-13] MEDS: PHENAZOPYRIDINE HCL 100 MG TAB PO SCH ×3 (09:00→21:00)
[2017-09-13] MEDS: AMIODARONE HCL 200 MG TAB PO SCH (09:00)
[2017-09-13] MEDS: FINASTERIDE 5 MG TAB PO SCH (09:00)
[2017-09-13] MEDS: MEROPENEM 500 MG VIAL IV SCH ×2 (13:04→21:00)
[2017-09-13] MEDS: LEVOFLOXACIN 250 MG TAB PO SCH (14:30)
[2017-09-13] MEDS ORDERED: BELLADONNA/OPIUM 30 MG SUPP RC ONE (15:37)
[2017-09-13] MEDS ORDERED: IOPAMIDOL 610MG/1ML 300 MG/ML VIAL IV ONE (15:38)
[2017-09-13] MEDS ORDERED: SODIUM CHLORIDE 0.9% 500ML 500 ML ONE (15:38)
[2017-09-13] MEDS ORDERED: FENTANYL CITRATE/PF 100MCG/2 ML INJ ONE (17:55)
[2017-09-13] MEDS: GABAPENTIN 300 MG CAP PO SCH (21:00)
[2017-09-13] MEDS: ROPINIROLE HCL 1 MG TAB PO SCH (21:00)
[2017-09-14] VITALS (7 sets, daily range): BP systolic 85–102; BP diastolic 39–61
[2017-09-14] MEDS: SEVELAMER CARBONATE 800 MG TAB PO SCH ×3 (07:30→16:30)
[2017-09-14] MEDS: PHENAZOPYRIDINE HCL 100 MG TAB PO SCH ×3 (09:00→21:40)
[2017-09-14] MEDS: MEROPENEM 500 MG VIAL IV SCH ×3 (09:00→21:40)
[2017-09-14] MEDS: FINASTERIDE 5 MG TAB PO SCH (09:00)
[2017-09-14] MEDS: AMIODARONE HCL 200 MG TAB PO SCH (09:00)
[2017-09-14] MEDS: MIDODRINE HCL 5 MG TABLET PO SCH (09:00)
[2017-09-14] MEDS: LEVOFLOXACIN 250 MG TAB PO SCH (14:30)
[2017-09-14] MEDS ORDERED: PROPOFOL IV EMULSION 10 MG/ML 20 ML VIAL ONE (17:51)
[2017-09-14] MEDS ORDERED: SEVOFLURANE INHAL SOLN 250 ML PEN BTL ONE (17:51)
[2017-09-14] MEDS ORDERED: ONDANSETRON HCL INJ 2 MG/ML VIAL ONE (17:51)
[2017-09-14] MEDS ORDERED: LIDOCAINE HCL 2% LOCAL INJ 5 ML SDV VIAL INJ ONE (17:51)
[2017-09-14] MEDS ORDERED: DEXAMETHASONE SOD PHOS INJ 4 MG/ML VIAL ONE (17:51)
[2017-09-14] MEDS: ROPINIROLE HCL 1 MG TAB PO SCH (21:40)
[2017-09-14] MEDS: GABAPENTIN 300 MG CAP PO SCH (21:40)
[2017-09-15] VITALS (9 sets, daily range): BP systolic 93–113; BP diastolic 48–67
[2017-09-15] MEDS: SEVELAMER CARBONATE 800 MG TAB PO SCH ×3 (07:45→16:30)
[2017-09-15] MEDS: MIDODRINE HCL 5 MG TABLET PO SCH (09:00)
[2017-09-15] MEDS: FINASTERIDE 5 MG TAB PO SCH (09:08)
[2017-09-15] MEDS: AMIODARONE HCL 200 MG TAB PO SCH (09:08)
[2017-09-15] MEDS: PHENAZOPYRIDINE HCL 100 MG TAB PO SCH ×3 (09:08→20:36)
[2017-09-15] MEDS: MEROPENEM 500 MG VIAL IV SCH ×2 (09:09→20:36)
[2017-09-15] MEDS ORDERED: CARISOPRODOL 350 MG TAB PO PRN (10:45)
[2017-09-15] MEDS ORDERED: TRAMADOL HCL 50 MG TAB PO PRN (10:45)
[2017-09-15] MEDS: LEVOFLOXACIN 250 MG TAB PO SCH (15:20)
[2017-09-15] MEDS: ROPINIROLE HCL 1 MG TAB PO SCH (20:36)
[2017-09-15] MEDS: GABAPENTIN 300 MG CAP PO SCH (20:36)
[2017-09-16 04:10] VITALS: BP 104/58
[2017-09-16 05:52] LABS: BASOPHILS # (AUTO) 0.1 (0.0-0.1); BASOPHILS % 0.5 % (0.0-1.0); EOSINOPHILS # (AUTO) 0.3 (0.0-0.4); EOSINOPHILS % 1.3 % (0.0-6.0); HEMATOCRIT 36.5 % (38.2-49.6); HEMOGLOBIN 11.5 g/dL (14.0-18.0); LYMPHOCYTES # (AUTO) 12.5 (1.0-3.2); LYMPHOCYTES % 65.5 % (18.0-39.1); MEAN CORPUSCULAR HEMOGLOBIN 30.8 pg (28-32); MEAN CORPUSCULAR HGB CONC 31.5 g/dL (31-35); MEAN CORPUSCULAR VOLUME 97.9 fL (81-99); MONOCYTES # (AUTO) 1.7 (0.2-0.8); MONOCYTES % 8.8 % (4.4-11.3); NEUTROPHILS # (AUTO) 4.5 (2.1-6.9); NEUTROPHILS % 23.6 % (38.7-80.0); PLATELET COUNT 123 x10e3/uL (140-360); RED BLOOD COUNT 3.73 x10e6/uL (4.3-5.7); RED CELL DISTRIBUTION WIDTH 14.1 % (11.7-14.4)
[2017-09-16 06:11] LABS: ANION GAP 21.2 mmol/L (8-16); CREATININE, SERUM 7.94 mg/dL (0.72-1.25)
[2017-09-16 06:24] LABS: POTASSIUM 6.2 mmol/L (3.5-5.1)
[2017-09-16 07:10] VITALS: BP 109/60
[2017-09-16 07:29] VITALS: BP 109/60
[2017-09-16] MEDS: SEVELAMER CARBONATE 800 MG TAB PO SCH ×3 (07:46→17:03)
[2017-09-16 08:00] LABS: BLAST CELLS % MANUAL 1; EOSINOPHILS % (MANUAL) 1 % (0-7); LYMPHOCYTES % (MANUAL) 67 % (19-48); MONOCYTES % (MANUAL) 8 % (3.4-9.0); NEUTROPHILS % (MANUAL) 23 % (40-74); RBC MORPHOLOGY COMMENT NORMAL; TEAR DROP CELLS FEW
[2017-09-16 08:01] LABS: ANISOCYTOSIS SLIGHT; PLATELET ESTIMATE SLIGHTLY DECREASED; PLATELET MORPHOLOGY COMMENT FEW LARGE
[2017-09-16] MEDS: PHENAZOPYRIDINE HCL 100 MG TAB PO SCH ×4 (09:00→20:29)
[2017-09-16] MEDS: MIDODRINE HCL 5 MG TABLET PO SCH (09:00)
[2017-09-16 11:41] VITALS: BP 129/43
--- NOTE | 2017-09-16 12:34 | Consultation ---
DATE OF CONSULTATION: September 15, 2017 INFECTIOUS DISEASE INITIAL CONSULTATION REASON FOR CONSULTATION: ESBL in the urine. Urinary tract infection. HISTORY OF PRESENT ILLNESS: This is a 62-year-old male with a past medical history of end-stage renal disease on dialysis, several admissions regarding hyperkalemia despite being on dialysis, history of coronary artery disease with CVA that resulted in left-sided hemiparesis. He was seen by Dr. Isaak Kowalski in his office and found to have a renal stone as well as urinary tract infection. He was subsequently admitted. PAST MEDICAL HISTORY: Includes: 1. End-stage renal disease. 2. Coronary artery disease. 3. Ischemic colitis. 4. Diverticulosis. 5. CVA with left-sided hemiparesis. 6. Hypertension. 7. Dyslipidemia. 8. Diskitis and osteomyelitis of the spine treated in the past. ALLERGIES: THE PATIENT IS ALLERGIC TO AMOXICILLIN AND AUGMENTIN. MEDICATIONS: See MAR. FAMILY HISTORY: Noncontributory. SOCIAL HISTORY: The patient denies tobacco, EtOH or illicit drug use. He is a prison resident. REVIEW OF SYSTEMS: See HPI. PHYSICAL EXAMINATION GENERAL: The patient is seen in bed today, alert and oriented times 3, in no apparent distress. VITAL SIGNS: Temp 96.1, blood pressure 97/54, heart rate 69, respirations 16. HEENT: Normocephalic and atraumatic. PERRLA. The extraocular movements are intact. NECK: Supple. No lymphadenopathy. No JVD. CHEST: Lungs are clear to auscultation bilaterally. CARDIOVASCULAR: Regular rate and rhythm. Normal S1 and S2. ABDOMEN: Soft and nontender. Bowel sounds times 4. EXTREMITIES: Left arm edema. AV graft noted in left forearm with apparent thrombosis. The patient says that hemodialysis uses another access site. There have been no complications in regards to his forearm. LABS: White blood cell count 18.5, hemoglobin 12.5, hematocrit 38.8, platelets 176. Sodium 143, potassium 5.1, chloride 101, bicarb 26, BUN 67, creatinine 8.1, glucose 95. Urine culture growing Proteus mirabilis, ESBL as well as Enterococcus faecalis, all less than 10,000. ASSESSMENT 1. Urinary tract infection, gram-negative. 2. End-stage renal disease on hemodialysis. 3. Cerebrovascular accident with left-sided hemiparesis. PLAN: The patient is currently on meropenem. Plan is to discharge the patient with 14 days of meropenem IV plus hemodialysis. Case discussed with Dr. Waters. Further recommendations to follow. Thank you for this kind consultation. We will follow the patient along with you. Dictated by: PAU David Job#: [id number]
[2017-09-16] MEDS: MEROPENEM 500 MG VIAL IV SCH ×2 (15:27→20:28)
[2017-09-16] MEDS: FINASTERIDE 5 MG TAB PO SCH (15:27)
[2017-09-16] MEDS: LEVOFLOXACIN 250 MG TAB PO SCH (15:27)
[2017-09-16] MEDS: AMIODARONE HCL 200 MG TAB PO SCH (15:27)
[2017-09-16 16:02] VITALS: BP 102/62
[2017-09-16 20:00] VITALS: BP 98/50
[2017-09-16] MEDS: ROPINIROLE HCL 1 MG TAB PO SCH (20:29)
[2017-09-16] MEDS: GABAPENTIN 300 MG CAP PO SCH (20:29)
[2017-09-17] VITALS: BP 111/61
[2017-09-17 04:00] VITALS: BP 83/55
[2017-09-17 07:25] VITALS: BP 102/61
[2017-09-17 08:00] VITALS: BP 102/61
[2017-09-17] MEDS: MEROPENEM 500 MG VIAL IV SCH (08:30)
[2017-09-17] MEDS: SEVELAMER CARBONATE 800 MG TAB PO SCH ×3 (08:30→16:30)
[2017-09-17] MEDS: PHENAZOPYRIDINE HCL 100 MG TAB PO SCH ×2 (08:30→15:00)
[2017-09-17] MEDS: FINASTERIDE 5 MG TAB PO SCH (08:30)
[2017-09-17] MEDS: AMIODARONE HCL 200 MG TAB PO SCH (08:30)
[2017-09-17] MEDS: MIDODRINE HCL 5 MG TABLET PO SCH (09:00)
[2017-09-17 10:08] LABS: BASOPHILS # (AUTO) 0.1 (0.0-0.1); BASOPHILS % 0.4 % (0.0-1.0); EOSINOPHILS # (AUTO) 0.2 (0.0-0.4); EOSINOPHILS % 1.1 % (0.0-6.0); HEMATOCRIT 37.9 % (38.2-49.6); LYMPHOCYTES # (AUTO) 12.6 (1.0-3.2); LYMPHOCYTES % 66.7 % (18.0-39.1); MEAN CORPUSCULAR HEMOGLOBIN 30.6 pg (28-32); MEAN CORPUSCULAR HGB CONC 31.7 g/dL (31-35); MEAN CORPUSCULAR VOLUME 96.7 fL (81-99); MONOCYTES # (AUTO) 1.7 (0.2-0.8); MONOCYTES % 9.2 % (4.4-11.3); NEUTROPHILS # (AUTO) 4.2 (2.1-6.9); NEUTROPHILS % 22.3 % (38.7-80.0); PLATELET COUNT 158 x10e3/uL (140-360); RED BLOOD COUNT 3.92 x10e6/uL (4.3-5.7); RED CELL DISTRIBUTION WIDTH 13.9 % (11.7-14.4)
[2017-09-17 11:11] LABS: ANISOCYTOSIS SLIGHT; EOSINOPHILS % (MANUAL) 2 % (0-7); HYPOCHROMASIA SLIGHT; LYMPHOCYTES % (MANUAL) 67 % (19-48); MONOCYTES % (MANUAL) 6 % (3.4-9.0); NEUTROPHILS % (MANUAL) 17 % (40-74); PLATELET ESTIMATE ADEQUATE; PLATELET MORPHOLOGY COMMENT NORMAL; RBC MORPHOLOGY COMMENT NORMAL
[2017-09-17 12:00] VITALS: BP 98/54
[2017-09-17] MEDS: LEVOFLOXACIN 250 MG TAB PO SCH (15:00)
[2017-09-17 16:00] VITALS: BP 112/56
[2017-09-17] MEDS ORDERED: SODIUM BICARBONATE 650 MG TAB PO SCH (17:00)
[2017-10-15] MEDS ORDERED: SODIUM BICARBO650 MG PO (08:13)
[2017-10-15] MEDS ORDERED: SODIUM POL15 GM/60 M PO (08:14)
--- NOTE | 2017-11-11 01:09 | Operative Report ---
DATE OF PROCEDURE: September 13, 2017 PREOPERATIVE DIAGNOSES 1. Left nephrolithiasis. 2. Left ureterolithiasis. 3. Left indwelling ureteral stent. POSTOPERATIVE DIAGNOSES 1. Left nephrolithiasis. 2. Left ureterolithiasis. 3. Left indwelling ureteral stent. OPERATIONS PERFORMED: Note these were all staged procedures for multi-stage, multi-step process of managing the patient's urolithiasis. 1. Cystourethroscopy with complicated removal of left indwelling ureteral stent (separate procedure performed for the diagnosis of stent done with separate scope). 2. Left ureteroscopy with Holmium laser lithotripsy and insertion of stent (separate procedure performed for the left ureterolithiasis. 3. Left flexible ureteropyeloscopy with Holmium laser lithotripsy (separate procedure performed for the left nephrolithiasis). 4. Urological services for supervision and interpretation of ureteroscopy. 5. Interpretation of retrograde ureteropyelography. ANESTHESIA: General. COMPLICATIONS: None. CLINICAL SUMMARY: Ernie Walton is a very complicated man with chronic renal failure who makes very little urine. He has bilateral nephrolithiasis. The patient has undergone ESWL as well as a stent placement. He was brought to the operating room today in hopes of rendering him stone-free if possible. He is aware of the risks of bleeding, infection, injury to adjacent structures, need for additional procedures, and elected to proceed. This procedure was scheduled for September 08, however, due to the fact that the patient had hyperkalemia, he was rescheduled until his electrolyte status could be optimized by the nephrology service. Now, that the patient is cleared as well as has had any infectious etiology addressed, he is brought to the operating room for the above staged procedure. OPERATIVE PROCEDURE IN DETAIL: Informed consent was verified. Ernie Walton was properly identified, taken to the operating room, placed on the cystoscopy table in supine position. Anesthesia was uneventfully begun. The patient was then carefully and gently repositioned in dorsal lithotomy position with all pressure points well padded. His genitalia were prepared and draped in usual sterile fashion. A 22.5-[place] cystoscope sheath with the visual obturator in place was atraumatically inserted into the patient's urethra. It was carried down the unremarkable distal urethra past a wide-caliber, nonsignificant stricturing at the bulbar region. We passed the normal sphincteric region, went through the prostate bed which was wide open status post transurethral resection of the prostate. The stent was noted to be emerging from the left ureteral orifice. A guidewire was then placed along the stent into the right ureteral orifice. A guidewire was placed at the level of the patient's kidney. The stent was then grasped and fully removed then discarded. Semirigid ureteroscopy was then performed. The semirigid ureteroscope then brought up alongside the guidewire and guided to the level of the patient's proximal ureter where there was a stricture consistent with a stone. Holmium laser lithotripsy was then utilized to pulverize the stone into multiple smaller fragments. We then advanced the scope into the patient's kidney. Laser lithotripsy was performed and kidney fragments seemed too large to pass and then with cystoscopic and fluoroscopic guidance, the right-sided indwelling ureteral stent was coiled in the patient's left kidney as well as the patient's bladder. The retaining suture was cut short. INTERPRETATION OF RETROGRADE URETEROPYELOGRAPHY: Contrast was instilled in retrograde fashion on the left hand side. Filling defect corresponding to stones noted with calcifications on the set o type operator films. We localized the bipolar capsule and laser lithotripsy was then performed. Laser lithotripsy was performed of multiple stones within the kidney. Sampling of some of the stones that we lasered was extracted atraumatically and sent for chemical analysis. This whole procedure was rather involved requiring numerous passes with the ureteroscope. Flexible ureteroscopy sheath was utilized for ureteral protection. With cystoscopic and fluoroscopic guidance, a left-sided indwelling ureteral stent was then placed. It was coiled in the patient's kidney as well as the patient's bladder. The retaining suture was cut short. The patient has then uneventfully reversed from anesthesia and taken to recovery room in stable condition. There were no complications during the procedure. He tolerated the procedure well. Explicit postoperative instructions were given. We will follow the patient up in the office at which point in time we will manage his voiding. In the meantime, we would bring the patient back to the operating room in several weeks to remove his stent and perform ureteroscopy and hopefully render the patient stone-free on the left hand side. Job#: [id number]
--- NOTE | 2017-12-03 16:40 | Discharge Summary ---
FINAL DIAGNOSES 1. Complicated urinary tract infection associated with ureteral stent placement previously. 2. Extended-spectrum beta-lactamase and enterococcus urine culture infection associated with multidrug resistant bacteria infection secondary to indwelling stent in the ureter. 3. End-stage renal disease, on dialysis. 4. Status post sepsis without shock. 5. Status post ureteral stent removal. 6. Status post cystoscopy, stone management. 7. Leukocytosis, resolved. 8. Hyperkalemia, status post dialysis. SUMMARY: Patient is a 62-year-old male who came in very ill. The patient with leukocytosis and with left hydronephrosis secondary to left ureteral stent associated with obstructive stone. Patient was seen by Dr. Isaak Kowalski. The patient underwent subsequent, on September 13, 2017, cystoscopy with stent exchange and management. Patient has end-stage renal disease, he is on dialysis. His urine culture grew out Proteus ESBL associate but also culture grew out enterococcus. The patient was on meropenem infusion. The patient continued to receive IV antibiotics. He has leukocytosis that improved with IV antibiotics. He was stable. The patient's potassium was elevated but with dialysis he continued to improve. His electrolyte was corrected with dialysis. Patient was seen by Dr. King. Meropenem recommended for 10 days post discharge from the hospital. IV antibiotic arrangement by case managers per recommendation by Dr. King on consult. The patient was stable. His infection was resolving. Continue to manage with IV antibiotics as outpatient. He continued with dialysis as well per his schedule. The patient will need to follow up with Dr. Kowalski for stone management. He expressed understanding. He does have an appointment with Dr. Kowalski as well. The patient was discharged home after IV antibiotic was arranged. He will resume his home medication. The patient was stable on discharge. Follow up with Dr. Isaak Kowalski and continue to follow up with his dialysis outpatient. Job#: [id number]
== END 2017-09-17 18:43 | DRG 668 ==
LOC: OR 06:04 → PACU V 10:11 → MED/SURG3 10:15
PROVIDERS: ADMIT Internal Medicine; ATTEND Internal Medicine
PROC: 5A1D70Z Performance of Urinary Filtration, Intermittent, Less than 6 Hours Per Day (ICD-10-PCS; 2017-09-08)
PROC: 5A1D70Z Performance of Urinary Filtration, Intermittent, Less than 6 Hours Per Day (ICD-10-PCS; 2017-09-09)
PROC: 5A1D70Z Performance of Urinary Filtration, Intermittent, Less than 6 Hours Per Day (ICD-10-PCS; 2017-09-11)
PROC: 0TC78ZZ Extirpation of Matter from Left Ureter, Via Natural or Artificial Opening Endoscopic (ICD-10-PCS; 2017-09-13)
PROC: 0T778DZ Dilation of Left Ureter with Intraluminal Device, Via Natural or Artificial Opening Endoscopic (ICD-10-PCS; 2017-09-13)
PROC: BT1F1ZZ Fluoroscopy of Left Kidney, Ureter and Bladder using Low Osmolar Contrast (ICD-10-PCS; 2017-09-13)
PROC: 5A1D70Z Performance of Urinary Filtration, Intermittent, Less than 6 Hours Per Day (ICD-10-PCS; 2017-09-13)
PROC: 0TP98DZ Removal of Intraluminal Device from Ureter, Via Natural or Artificial Opening Endoscopic (ICD-10-PCS; principal; 2017-09-13 16:16)
PROC: 5A1D70Z Performance of Urinary Filtration, Intermittent, Less than 6 Hours Per Day (ICD-10-PCS; 2017-09-14)
PROC: 5A1D70Z Performance of Urinary Filtration, Intermittent, Less than 6 Hours Per Day (ICD-10-PCS; 2017-09-16)
DX: T83.593A Infection and inflammatory reaction due to other urinary stents, initial encounter (principal); N18.6 End stage renal disease; I12.0 Hypertensive chronic kidney disease with stage 5 chronic kidney disease or end stage renal disease; I69.354 Hemiplegia and hemiparesis following cerebral infarction affecting left non-dominant side; N39.0 Urinary tract infection, site not specified; N20.0 Calculus of kidney; I25.10 Atherosclerotic heart disease of native coronary artery without angina pectoris; Z99.2 Dependence on renal dialysis; E78.5 Hyperlipidemia, unspecified; K57.90 Diverticulosis of intestine, part unspecified, without perforation or abscess without bleeding; B95.2 Enterococcus as the cause of diseases classified elsewhere; B96.4 Proteus (mirabilis) (morganii) as the cause of diseases classified elsewhere; Z16.24 Resistance to multiple antibiotics; Z86.74 Personal history of sudden cardiac arrest; Z16.12 Extended spectrum beta lactamase (ESBL) resistance; Z95.1 Presence of aortocoronary bypass graft
CPT/HCPCS: 36415; 71046; 74018; 74420; 80048; 81001; 82948; 83735; 84132; 84443; 85025; 86704; 86706; 87040; 87086; 87186; 87340; 88300; 90962; 97139; C1766; C2617; J0696; J1100; J1580; J1644; J2001; J2150; J2185; J2405; J7030; J7040; Q4081

== ENCOUNTER → 2017-10-15 | Day surgery (SDC) | payer MEDICARE ==
[~2017-10-15] MED LIST changes: +IOPAMIDOL 300MG/ML 50ML INFUS..BTL IV ONE; +LIDOCAINE HCL 2% LOCAL INJ 5 ML SDV VIAL INJ ONE; +PROPOFOL IV EMULSION 10 MG/ML 20 ML VIAL ONE; +SEVOFLURANE INHAL SOLN 250 ML PEN BTL ONE; +SODIUM BICARBO650 MG PO; +SODIUM CHLORIDE 0.9% 500ML 500 ML ONE; +SODIUM POL15 GM/60 M PO
--- NOTE | 2017-10-15 09:15 | Diagnostic Imaging Report ---
PROCEDURE:X-RAY ABDOMEN - KUB COMPARISON:Retrograde pyelogram 09/13/2017, KUB 09/08/2017 INDICATIONS:PRE-OPERATIVE KUB FOR SURGERY FINDINGS: Left internal ureteral stent is again noted. Proximal locking loop projects over the upper pole collecting system. The distal locking loop projects over the urinary bladder. Multiple calcifications are again noted projecting over the left renal shadow, grossly unchanged. Small ossifications projecting over the right renal shadow described on the comparison examination are less conspicuous on the current study. IVC filter is again noted, along with aneurysmal dilatation of the infrarenal abdominal aorta as well as the right common iliac artery. Bowel gas pattern is nonobstructive. No acute osseous abnormality. Advanced right hip degenerative joint disease. CONCLUSION: Grossly unchanged left internal ureteral stent and bilateral renal stone burden relative to 09/09/27. Dictated by: Soto Bhardwaj M.D. on 10/15/2017 at 8:42 Electronically approved by: Soto Bhardwaj M.D. on 10/15/2017 at 8:42
[2017-10-15] MEDS: MEROPENEM 1GM 100 ML IV ONE (09:22)
--- NOTE | 2017-12-13 23:53 | Operative Report ---
DATE OF PROCEDURE: October 15, 2017 PREOPERATIVE DIAGNOSES 1. Left nephrolithiasis. 2. Left indwelling ureteral stent. POSTOPERATIVE DIAGNOSES 1. Left nephrolithiasis. 2. Left indwelling ureteral stent. OPERATIONS PERFORMED: Note these are all staged procedures as part of multi-stage, multi-step process of managing the patient's extensive urolithiasis. 1. Cystourethroscopy with complicated removal of left indwelling ureteral stent (separate procedure performed for the diagnosis of the stent done with separate scope). 2. Repeated left ureteropyeloscopy with stone manipulation and extraction (separate procedure performed numerous times for innumerable left-sided kidney stones. 3. Urological services for supervision and interpretation of ureteroscopy. 4. Interpretation of retrograde ureteropyelography. ANESTHESIA: General. COMPLICATIONS: None. CLINICAL SUMMARY: Ernie Walton is a 62-year-old man on hemodialysis. He has low urinary output. He was managed for kidney stones with multimodal therapy. He is brought to the operating room in hopes of rendering him stent-free and stone-free on the left side. He is aware of the risks of bleeding, infection, injury to adjacent structures, need for additional procedures and elected to proceed. OPERATIVE PROCEDURE IN DETAIL: Informed consent was verified. Ernie Walton was properly identified, taken to the operating room, placed on the cystoscopy table in supine position. Anesthesia was uneventfully begun. The patient was then carefully and gently re-positioned in a modified dorsal lithotomy position with all pressure points carefully well padded. His genitalia were prepared and draped in usual sterile fashion following deflation of his inflatable penile prosthesis. The 22.5-H[place]er cystoscope sheath with the visual obturator in place was atraumatically inserted in patient's urethra. It was guided down the unremarkable distal urethra past wide caliber, not clinically significant strictures at the bulbar region through the prostate bed which was wide open status post transurethral resection of the prostate. We entered the patient's bladder and drained it. Panendoscopy revealed no suspicious mucosal lesions. No tumors, no stones, and no diverticula. Stent was noted to be emerging from the left ureteral orifice. The stent was not encrusted. There were no suspicious lesions noted. A guidewire was then placed alongside the stent and guided at the level of the patient's kidney. The stent was then grasped, completely removed, and then discarded. Flexible ureteroscope was then placed alongside the guidewire up into the left ureter. We identified some sand within the left ureter, but no stones. We placed a secondary guidewire. A flexible ureteroscope was then placed over the guidewire and guided at the level of the patient's kidney. Panendoscopy of the intrarenal collecting system revealed countless stones. Most of these stones were 1 or 2 mm in size. Under normal circumstances, these stones would be passable. However, in this particular patient who is bedridden, hemiparetic, does not walk and does not produce significant amount of urine, stone passage has not been successful. We utilized nitinol tipless basket to grasp some of the stone debris and we extracted it atraumatically with the ureteroscope. We then utilized a double-lumen ureteral catheter to introduce the guidewire. We repeated this process numerous times. Following removal of all stones that were larger than 2 mm, we vigorously irrigated loose any millimeter and sub-millimeter stones that were left in place. We carefully re-examined the ureter which exhibited no residual stones. The patient's bladder was drained. Cystoscope was withdrawn. The patient was uneventfully reversed from anesthesia and taken to recovery room in stable condition. There were no complications to the procedure. He tolerated the procedure well. Interpretation of retrograde ureteropyelography: Contrast was instilled in retrograde fashion left hand side. There was mild chronic-appearing fullness of the collecting system on the left hand side. There were no significant filling defects noted as these stones were very small. Unobstructed drainage was observed fluoroscopically. The ureter was unremarkable. Plan will be to follow the patient up in the office. We will discuss with the patient that should he have problems with urolithiasis again given his low urine output, the best form of management would probably be to proceed with a nephrectomy on the affected side. Job#: [id number] CF
--- OUTSIDE RECORDS SUMMARY | 2017-12-15 23:02 | XMS REPORT | Continuity of Care Document ---
Author Author [facility] Organization [facility] Address [address] [place] [address] Phone Unavailable Care Team Providers Care Devops Architect Name Role Phone NONSTAFF PCP Unavailable Insurance Providers Guarantor Ernie Walton Address [address] [address] [place] [address] Payer [employer] Policy Number [id number] Subscriber's Name Ernie Walton Relationship 18 Self / Same As Patient Effective Date 15 Payer Medicare A & B Policy Number [id number] Subscriber's Name Ernie Walton Relationship 18 Self / Same As Patient Group Name UNEMPLOYED Effective Date 83 Advance Directives Directive Response Recorded Date/Time Does the patient have an advance directive? No 09/08/17 10:30am If yes, is advance directive on file with [facility]? No 09/08/17 10:30am If not on file with [facility] will patient provide a copy? No 09/08/17 10:30am Do you have a Directive to Physician? No 09/02/17 3:29pm Do you have a Medical Power of Energy And Sustainability Manager? No 09/02/17 3:29pm Do you have an out of hospital Do Not Resuscitate Order? No 09/02/17 3:29pm Do you have any special needs we should be aware of? No 06/21/18 3:29pm Do you have a support person here with you today? No 09/02/17 3:29pm Did patient receive Notice of Privacy Practices? Yes 09/08/17 6:03am Did patient receive patient rights and responsibilities? Yes 09/08/17 6:03am Problems No problem information available. Medications Current Home Medications Medication Dose Units Route Directions Days Qty Instructions Start Date Acetaminophen With Codeine (Tylenol With Codeine #3 Tablet) 1 Each Tablet 300 Mg Oral As Needed Amiodarone Hcl 200 Mg Tablet 200 Mg Oral Daily Aspirin (Aspir 81) 81 Mg Tablet.dr 81 Mg Oral Daily Biofreeze 4 % Topically As Needed Bisacodyl (Dulcolax) 5 Mg Tablet.dr 5 Mg Oral Daily Bisacodyl (Dulcolax) 10 Mg Supp.rect 10 Mg Rectal As Needed Carisoprodol (Soma) 350 Mg Tablet 350 Mg Oral Every 6 Hours as needed for Muscle Spasms Cinacalcet Hcl (Sensipar) 60 Mg Tablet 60 Mg Oral Bedtime Finasteride 5 Mg Tablet 5 Mg Oral Daily Fluticasone 2 Spr Nasal Twice A Day as needed for Allergy Folic Acid 1 Mg Tablet 1 Mg Oral Daily Folic Acid/Cyanocob/Pyridoxine (Nephro-Kai Tablet) 1 Ea Tab 1 Each Oral Sun/Mon/Wed 30 Tab Gabapentin 100 Mg Capsule 300 Mg Oral Daily At 11AM Guaifenesin/D-Methorphan Hb/Pe (Robitussin Cough-Cold Cf Liq) 118 Ml Liquid 5 Ml Oral As Needed Hydrocodone Bit/Acetaminophen ([place] 7.5-325 Tablet) 1 Each Tablet 1 Tab Oral As Needed Ibuprofen 200 Mg Capsule 200 Mg Oral As Needed Lactulose 20 Gm/30 Ml Solution 30 Ml Oral As Needed Loperamide Hcl (Loperamide) 2 Mg Tablet 2 Mg Oral Q4 Hr Prn Diarrhea Loratadine 10 Mg Tablet 10 Mg Oral As Needed 30 Tab Midodrine Hcl 10 Mg Tablet 10 Mg Oral Daily WED, , SAT FOR HYPOTENSION Oxybutynin Chloride (Oxybutynin Chloride Er) 15 Mg Tab.er.24 10 Mg Oral Daily Phenazopyridine Hcl 100 Mg Tablet 100 Mg Oral Three Times A Day Polyethylene Glycol 3350 17 Gm Powd.pack 17 Gm Oral Daily Ropinirole Hcl (Requip) 1 Mg Tablet 1 Mg Oral As Needed Sevelamer Carbonate (Renvela) 0.8 Gm Powd.pack 3,200 Mg Oral Before Meals Tramadol Hcl (Ultram) 50 Mg Tablet 50 Mg Oral As Needed Past Home Medications Medication Directions Ordered Status Acetaminophen (Pain Relief) 500 Mg Tablet, 500 Mg Oral Q4hr Prn Pain/Fever Discontinued Albuterol Sulfate 2.5 Mg/3 Ml Vial.neb, 1 Inh Inhalation As Needed Discontinued Amiodarone Hcl 200 Mg Tablet, 200 Mg Oral Q Wed, Wed, Wed, Wed Discontinued Amiodarone Hcl 200 Mg Tablet, 100 Mg Oral Q , , Wed Discontinued Bisacodyl 5 Mg Tablet.dr, 10 Mg Rectal As Needed Discontinued Bisacodyl (Dulcolax) 5 Mg Tablet.dr, 5 Mg Oral Discontinued Cholestyramine (With Sugar) (Questran Packet) 4 Gm Packet, 4 Gm Oral Twice A Day Discontinued Cinacalcet Hcl (Sensipar) 90 Mg Tablet, 90 Mg Oral Daily Discontinued Clonidine Hcl 0.1 Mg Tablet, 0.1 Mg Oral Q4hr Prn Bp >180/100 Discontinued Coumadin , 3 Mg Oral Bedtime Discontinued Cyanocobalamin (Vitamin B-12) 1,000 Mcg Tab, 1000 Mg Oral Daily Discontinued Cyclobenzaprine Hcl 10 Mg Tablet, 10 Mg Oral Three Times A Day Discontinued Dextran 70/Hypromellose (Artificial Tears Eye Drops) 15 Ml Drops, 2 Drop Ophthalmic Twice A Day Discontinued Dextran 70/Hypromellose/Pf (Artificial Tears Drops) 1 Each Droperette, Each Eye Daily Discontinued Diphenhydramine Hcl (Benadryl) 25 Mg Capsule, 25 Mg Oral As Needed Discontinued Duloxetine Hcl (Cymbalta) 30 Mg Capsule.dr, 30 Mg Oral Q Wed, Wed, Wed, Wed Discontinued Famotidine (Pepcid) 20 Mg Tablet, 20 Mg Oral Daily Discontinued Flavoxate Hcl 100 Mg Tab, 200 Mg Oral Tid Prn Discontinued Gabapentin 600 Mg Tablet, 600 Mg Oral Daily At 2100 Discontinued Hydrocodone Bit/Acetaminophen ([place] 10-325 Tablet) 1 Each Tablet, 1 Tab Oral Q6hr Prn Pain Discontinued Lidocaine Patch 5% , Transderm Every 12 Hours as needed for Pain Discontinued Lorazepam 0.5 Mg Tablet, 0.5 Mg Oral Every 6 Hours as needed for Anxiety Discontinued Midodrine Hcl 5 Mg Tablet, 5 Mg Oral Qd Wed, , Wed Discontinued Multivitamin (Multivitamins) 1 Each Capsule, 1 Tab Oral Renal Mvi Daily Discontinued Nepro-Kai , 0.8 Mg Oral Sun,Wed,Wed Discontinued Niacin 1,000 Mg Tablet.er, 1000 Mg Oral Every Evening Discontinued Reva-3 Fatty Acids/Fish Oil (Reva 3 1,000 Mg Softgel) 1 Each Capsule, 1000 Mg Oral Daily Discontinued Phenazopyridine Hcl 100 Mg Tablet, 100 Mg Oral Tid Prn Discontinued Polyethylene Glycol 3350 (Miralax) 17 Gm Powd.pack, 17 Gm Oral Daily Discontinued Promethazine Hcl 25 Mg Tablet, 25 Mg Oral Q6hr Prn Nausea Discontinued Pyridoxine Hcl 100 Mg Tablet, 100 Mg Oral Daily Discontinued Quetiapine Fumarate (Seroquel) 25 Mg Tablet, 25 Mg Oral Bedtime Discontinued Riboflavin 100 Mg Tablet, 100 Mg Oral Daily Discontinued Ropinirole Hcl (Requip) 0.5 Mg Tab, 0.5 Mg Oral Qhs Discontinued Ropinirole Hcl (Requip) 0.25 Mg Tab, 0.25 Mg Oral Q8hr Prn Rls Discontinued Sertraline Hcl 50 Mg Tablet, 50 Mg Oral Daily Discontinued Sertraline Hcl 50 Mg Tablet, 50 Mg Oral Daily Discontinued Sevelamer Hcl (Renvela) 800 Mg Tab, 800 Mg Oral Three Times A Day Discontinued Sevelamer Hcl (Renvela) 800 Mg Tab, 5 Tab Oral Qd Am Discontinued Sevelamer Hcl (Renvela) 800 Mg Tab, 5 Tab Oral Bid W/Lunch & Dinner Discontinued Tamsulosin Hcl (Flomax*) 0.4 Mg Cap, 0.4 Mg Oral Daily Discontinued Topiramate 25 Mg Tablet, 25 Mg Oral Qhs Discontinued Zolpidem Tartrate (Ambien) 5 Mg Tablet, 5 Mg Oral Bedtime Discontinued Social History Social History Problem Response Recorded Date/Time Onset Date Status Hx Psychiatric Problems No 09/08/2017 10:30am Not Applicable Not Applicable Hx Eating Disorder No 03/21/2015 5:51pm Not Applicable Not Applicable Hx Substance Use Disorder No 03/21/2015 5:51pm Not Applicable Not Applicable Hx Depression No 03/21/2015 5:51pm Not Applicable Not Applicable Hx Alcohol Use No 03/21/2015 5:51pm Not Applicable Not Applicable Hx Substance Use Treatment No 03/21/2015 5:51pm Not Applicable Not Applicable Hx Physical Abuse No 03/21/2015 5:51pm Not Applicable Not Applicable Hospital Discharge Instructions No hospital discharge instruction information available. Plan of Care Discharge Date 09/17/17 6:43pm Disposition TRANSF[facility] GROUP HOME Prescriptions See Medication Section Functional Status Query Response Date Recorded Ambulation Ability Total Assistance September 08, 2017 10:30am Toileting Ability Maximum Assistance September 17, 2017 9:00am Allergies, Adverse Reactions, Alerts Allergen Type Severity Reaction Status Last Updated amoxicillin trihydrate Allergy Unknown Active 10/10/13 potassium clavulanate Allergy Unknown Active 10/10/13 Immunizations No immunization information available. Vital Signs Acute Vital Signs Vital Response Date/Time Temperature (Fahrenheit) 97.4 degrees F (97.6 - 99.5) 09/17/2017 4:00pm Pulse Pulse Rate (adult) 70 bpm (60 - 90) 09/17/2017 4:00pm Respiratory Rate 20 bpm (12 - 24) 09/17/2017 4:00pm Blood Pressure 112/56 mm Hg 09/17/2017 4:00pm Height 6 ft 0 in 09/08/2017 10:30am Weight 204.04 lb 09/10/2017 7:48am Body Mass Index 27.7 kg/m^2 09/10/2017 7:48am Results Laboratory Results Test Name Result Units Flags Reference Collection Date/Time Result Date/ Time Comments Uric Acid 4.8 mg/dL 4.8-8.0 05/21/2017 10:15am 05/21/2017 12:42pm Parathyroid Hormone 148 pg/mL H 15-65 05/21/2017 10:15am 05/22/2017 8: 45am Calcium (Send out) 8.5 mg/dL L 8.6-10.2 05/21/2017 10:15am 05/22/2017 8: 45am Parathyroid Hormone Interpretation Comment . 05/21/2017 10:15am 05/22 8:45am Interpretation Intact PTH Calcium (pg/mL) (mg/dL) Normal 15 - 65 8.6 - 10.2 Primary Hyperparathyroidism >65 >10.2 Secondary Hyperparathyroidism >65 <10.2 Non-Parathyroid Hypercalcemia <65 >10.2 Hypoparathyroidism <15 < 8.6 Non-Parathyroid Hypocalcemia 15 - 65 < 8.6 Performed at: - [facility] [id number] [place] Operator: Everett Gonzalez MD, Phone: [phone] Performed at: - [facility] [id number] [place] Operator: Aditya Vázquez MD, Phone: [phone] Myelocytes % 1 % H 0-0 07/09/2017 6:35am 07/09/2017 8:56am Macrocytosis SLIGHT 07/07/2017 10:37am 07/07/2017 12:23pm Prothrombin Time 13.9 seconds 11.9-14.5 07/07/2017 10:37am 07/07/2017 11:05am Prothromb Time International Ratio 1.16 07/07/2017 10:37am 2017 11:05am Oral Anticoagulant Therapy INR Values: 1. Low Intensity Therapy 1.5 - 2.0 2. Moderate Intensity Therapy 2.0 - 3.0 3. High Intensity Therapy(1) 2.5 - 3.5 4. High Intensity Therapy(2) 3.0 - 4.0 5. Panic Value INR > 5.0 Activated Partial Thromboplast Time 30.6 seconds 23.8-35.5 07/07/2017 10 :37am 07/07/2017 11:05am White Blood Count 18.83 x10e3/uL H 4.8-10.8 09/17/2017 10:00am 2017 10:10am Red Blood Count 3.92 x10e6/uL L 4.3-5.7 09/17/2017 10:00am 09/17/2017 10 :10am Hemoglobin 12.0 g/dL L 14.0-18.0 09/17/2017 10:00am 09/17/2017 10:10am Hematocrit 37.9 % L 38.2-49.6 09/17/2017 10:00am 09/17/2017 10:10am Mean Corpuscular Volume 96.7 fL 81-99 09/17/2017 10:00am 09/17/2017 10: 10am Mean Corpuscular Hemoglobin 30.6 pg 28-32 09/17/2017 10:00am 2017 10:10am Mean Corpuscular Hemoglobin Concent 31.7 g/dL 31-35 09/17/2017 10:00am 09/17/2017 10:10am Red Cell Distribution Width 13.9 % 11.7-14.4 09/17/2017 10:00am 2017 10:10am Platelet Count 158 x10e3/uL 140-360 09/17/2017 10:00am 09/17/2017 10: 10am Neutrophils (%) (Auto) 22.3 % L 38.7-80.0 09/17/2017 10:00am 09/17/2017 10:10am Lymphocytes (%) (Auto) 66.7 % H 18.0-39.1 09/17/2017 10:00am 09/17/2017 10:10am Monocytes (%) (Auto) 9.2 % 4.4-11.3 09/17/2017 10:00am 09/17/2017 10: 10am Eosinophils (%) (Auto) 1.1 % 0.0-6.0 09/17/2017 10:00am 09/17/2017 10: 10am Basophils (%) (Auto) 0.4 % 0.0-1.0 09/17/2017 10:00am 09/17/2017 10: 10am IM GRANULOCYTES % 0.3 % 0.0-1.0 09/17/2017 10:00am 09/17/2017 10:10am Neutrophils # (Auto) 4.2 2.1-6.9 09/17/2017 10:00am 09/17/2017 10: 10am Lymphocytes # (Auto) 12.6 H 1.0-3.2 09/17/2017 10:00am 09/17/2017 10: 10am Monocytes # (Auto) 1.7 H 0.2-0.8 09/17/2017 10:00am 09/17/2017 10: 10am Eosinophils # (Auto) 0.2 0.0-0.4 09/17/2017 10:00am 09/17/2017 10: 10am Basophils # (Auto) 0.1 0.0-0.1 09/17/2017 10:00am 09/17/2017 10:10am Absolute Immature Granulocyte (auto 0.06 x10e3/uL 0-0.1 09/17/2017 10: 0009/17/2017 10:10am Differential Total Cells Counted 100 09/17/2017 10:0009/17/2017 11:11am Neutrophils % (Manual) 17 % L 40-74 09/17/2017 10:00am 09/17/2017 11: 11am Lymphocytes % (Manual) 67 % H 19-48 09/17/2017 10:00am 09/17/2017 11: 11am Monocytes % (Manual) 6 % 3.4-9.0 09/17/2017 10:00am 09/17/2017 11:11am Eosinophils % (Manual) 2 % 0-7 09/17/2017 10:00am 09/17/2017 11:11am Basophils % (Manual) 1 % 0-1.5 09/12/2017 5:24am 09/12/2017 10:57am Metamyelocytes % 1 % H 0-0 09/11/2017 6:40am 09/11/2017 7:55am Promyelocytes % 1 % H 0-0 09/08/2017 7:15am 09/08/2017 8:24am Reactive Lymphocytes 8 09/17/2017 10:00am 09/17/2017 11:11am Blast Cells % 1 09/16/2017 5:45am 09/16/2017 8:01am Smudge Cells MODERATE 09/13/2017 5:00am 09/13/2017 7:39am Platelet Estimate ADEQUATE 09/17/2017 10:00am 09/17/2017 11:11am Platelet Morphology Comment NORMAL 09/17/2017 10:00am 09/17/2017 11 :11am Hypochromasia SLIGHT 09/17/2017 10:00am 09/17/2017 11:11am Poikilocytosis SLIGHT 09/13/2017 5:00am 09/13/2017 7:39am Anisocytosis SLIGHT 09/17/2017 10:00am 09/17/2017 11:11am Tear Drop Cells FEW 09/16/2017 5:45am 09/16/2017 8:01am Red Cell Morphology Comment NORMAL 09/17/2017 10:00am 09/17/2017 11 :11am Urine Color COLORLESS YELLOW 09/08/2017 11:44am 09/08/2017 12:12pm Urine Clarity MUCOUS CLEAR 09/08/2017 11:44am 09/08/2017 12:12pm Urine Specific [place] 1.000 L 1.010-1.025 09/08/2017 11:44am 2017 12:12pm Urine pH 6.5 5 - 7 09/08/2017 11:44am 09/08/2017 12:12pm Urine Leukocyte Esterase 2+ H NEGATIVE 09/08/2017 11:44am 09/08/2017 12:12pm Urine Nitrite POSITIVE H NEGATIVE 09/08/2017 11:44am 09/08/2017 12: 12pm Urine Protein 2+ H NEGATIVE 09/08/2017 11:44am 09/08/2017 12:12pm Urine Glucose (UA) NEGATIVE NEGATIVE 09/08/2017 11:44am 09/08/2017 12 :12pm Urine Ketones NEGATIVE NEGATIVE 09/08/2017 11:44am 09/08/2017 12: 12pm Urine Urobilinogen 0.2 mg/dL 0.2 - 1 09/08/2017 11:44am 09/08/2017 12: 12pm Urine Bilirubin 1+ H NEGATIVE 09/08/2017 11:44am 09/08/2017 12:12pm Confirmatory test currently unavailable. False positive results may occur. Urine Blood 3+ H NEGATIVE 09/08/2017 11:44am 09/08/2017 12:12pm Urine WBC 21-50 /HPF H 0-5 09/08/2017 11:44am 09/08/2017 12:12pm Urine RBC 11-20 /HPF H 0-5 09/08/2017 11:44am 09/08/2017 12:12pm Urine Bacteria FEW /HPF NONE 09/08/2017 11:44am 09/08/2017 12:12pm Urine Epithelial Cells RARE /LPF NONE 09/08/2017 11:44am 09/08/2017 12: 12pm Sodium Level 138 mmol/L 136-145 09/16/2017 5:45am 09/16/2017 6:24am Potassium Level 6.2 mmol/L *H 3.5-5.1 09/16/2017 5:45am 09/16/2017 6: 24am Results called to ROMAINE MACK RN at 0620 on 09/16/17 by Marjorie Horner. RB OK. Chloride Level 99 mmol/L 98-107 09/16/2017 5:45am 09/16/2017 6:24am Carbon Dioxide Level 24 mmol/L 22-29 09/16/2017 5:45am 09/16/2017 6: 24am Anion Gap 21.2 mmol/L H 8-16 09/16/2017 5:45am 09/16/2017 6:24am Blood Urea Nitrogen 71 mg/dL H 7-26 09/16/2017 5:45am 09/16/2017 6:24am Creatinine 7.94 mg/dL H 0.72-1.25 09/16/2017 5:45am 09/16/2017 6:24am BUN/Creatinine Ratio 9 6-25 09/16/2017 5:45am 09/16/2017 6:24am Estimat Glomerular Filtration Rate 8 ML/MIN L 60- 09/16/2017 5:45am 07/2017 6:24am Ranges were taken from the National Kidney Disease Education Program and the National [employer] literature. Reference ranges: 60 or greater: Normal 16-59 (for 3 consecutive months): Chronic kidney disease 15 or less: Kidney failure Glucose Level 79 mg/dL 74-118 09/16/2017 5:45am 09/16/2017 6:24am Calcium Level 10.0 mg/dL 8.4-10.2 09/16/2017 5:45am 09/16/2017 6:24am Magnesium Level 2.4 MG/DL H 1.3-2.1 09/08/2017 8:00am 09/08/2017 9:22am Thyroid Stimulating Hormone (TSH) 1.646 uIU/mL 0.350-4.940 09/13/2017 5: 00am 09/13/2017 7:12am Hepatitis B Surface Antibody, Quant <3.1 mIU/mL L Immunity>9.9 2017 10:50am 09/12/2017 1:33pm Status of Immunity Anti- HBs Level Inconsistent with Immunity 0.0 - 9.9 Consistent with Immunity >9.9 Hepatitis B Core Total Antibody Negative Negative 09/11/2017 10:50am 09/12/2017 1:33pm Performed at: - [facility] [address] [id number] [place] Operator: Everett Gonzalez MD, Phone: [phone] Hepatitis B Surface Antigen Negative Negative 09/08/2017 3:25pm 09/09 10:42am Performed at: HD - [facility] [address] [id number] [place] Operator: Everett Gonzalez MD, Phone: [phone] Microbiology Results Procedure Source Organism/Result Collection Date/Time Result Date/Time Result Status Blood Culture Blood NO GROWTH AFTER 5 DAYS, FINAL REPORT 09/09/2017 9:34am 09/14/2017 9:39am Final Urine Culture Urine,Catheterized ENTEROCOCCUS FAECALIS 09/13/2017 4:34pm 09/16/2017 12:30pm Final PROTEUS MIRABILIS-ESBL 09/13/2017 4:34pm 09/16/2017 12:30pm Final Procedures Procedure Status Date Provider(s) FRAGMENTING OF KIDNEY STONE Completed 05/21/17 GENESIS GUAJARDO MD CYSTOSCOPY AND TREATMENT Completed 05/21/17 GENESIS GUAJARDO MD FRAGMENTING OF KIDNEY STONE Completed 07/09/17 GENESIS GUAJARDO MD Extracorporeal shock wave lithotripsy (ESWL) Active 09/08/17 GENESIS GUAJARDO MD Cystoscopy Completed 09/13/17 GENESIS GUAJARDO MD X-ray of chest, two views Active 09/11/17 GENESIS GUAJARDO MD Encounters Encounter Location Arrival/Admit Date Discharge/Depart Date Attending Provider Discharged Inpatient [facility] 09/08/17 10:11am 6:43pm JOSELYN CARRION MD Registered Surgical Day Care [facility] 07/09/17 5:57am GENESIS GUAJARDO MD Registered Surgical Day Care [facility] 05/21/17 9:32am GENESIS GUAJARDO MD
== END | disposition home or self-care (01) ==
LOC: OR 07:43
PROVIDERS: ATTEND Urology
DX: N20.0 Calculus of kidney (principal); Z46.6 Encounter for fitting and adjustment of urinary device; I12.0 Hypertensive chronic kidney disease with stage 5 chronic kidney disease or end stage renal disease; N18.6 End stage renal disease; Z96.89 Presence of other specified functional implants; I69.354 Hemiplegia and hemiparesis following cerebral infarction affecting left non-dominant side; I48.91 Unspecified atrial fibrillation; Z88.0 Allergy status to penicillin; Z79.82 Long term (current) use of aspirin; Z74.01 Bed confinement status; Z99.2 Dependence on renal dialysis
CPT/HCPCS: 36415; 74018; 74420; 84132; 87086; 88300; C1766; J2001; J7040